=== PATIENT | male | born 1945 | race Caucasian/White ===

== ENCOUNTER 2019-08-24 20:59 | Observation (INO) | payer MEDICARE, SELFPAY ==
[2019-08-24 21:05] VITALS: BP 165/83; PULSE 98; RESP 22; TEMP 36.2; O2SAT 98
[2019-08-24 21:12] LABS: Glucose Point of Care 76 (65-105)
--- NOTE | 2019-08-24 21:39 | ED.RECABL ---
HPI - Recheck/Abnormal Lab/Rx General Chief Complaint: Recheck/Abnormal Lab/Rx Stated Complaint: low BS Time Seen by Provider: 08/24/19 21:36 Source: patient and RN notes reviewed Mode of arrival: ambulatory Limitations: no limitations History of Present Illness HPI narrative: Pt is a 74 y/o male with a Hx of DM, who presents to the ED with c/o hypoglycemia starting this evening. He notes that he normally only takes Metformin 500 mg for his DM. Pt states that he was at a family function this evening when he accidentally took an extra dosage of Metformin 1,000 mg and 2 Glipizide around 18:00. His notes that he also took Xarelto, Plavix, and ASA. Pt notes that his BS eventually dropped down to 70 after eating ice cream at home. He currently denies any symptoms. MD complaint: abnormal lab Returns today for: other (abnormal BS reading at home) Description of abnormal result: Blood glucose of 70. Symptoms since prior visit: no new symptoms Associated symptoms: none Related Data Home Medications Medication Instructions Recorded Confirmed aspirin 81 mg tablet,delayed 81 mg PO DAILY 07/26/19 release atorvastatin 40 mg tablet 40 mg PO DAILY 07/26/19 ferrous sulfate 142 mg (45 mg 2 mg PO DAILY tablet 07/26/19 iron) tablet,extended release furosemide 20 mg tablet 20 mg PO QAM 07/26/19 metformin 500 mg tablet 500 mg PO BID 07/26/19 multivitamin 1 tablet PO DAILY 07/26/19 pantoprazole 40 mg tablet,delayed 40 mg PO QAM 07/26/19 release niacin 500 mg capsule,extended 500 mg PO QAM 07/28/19 07/28/19 release Allergies Allergy/AdvReac Type Severity Reaction Status Date / Time lisinopril AdvReac Mild Cough Verified 03/06/19 10:58 Review of Systems Review of Systems: Narrative: CONSTITUTIONAL: Denies fever, chills, or sweats. CARDIOVASCULAR: Denies chest pain, palpitations, or edema. RESPIRATORY: Denies cough or dyspnea. GASTROINTESTINAL: Denies abdominal pain, nausea, vomiting, or diarrhea. GENITOURINARY: Denies dysuria or hematuria. All systems reviewed & are unremarkable except as noted in HPI and below PMFSH Past Medical History Medical History A-fib Arthritis Diabetes mellitus HLD (hyperlipidemia) Mitral valve prolapse Prostate cancer Sleep apnea Surgical History Surgical History Hx of appendectomy Hx of cardiac catheterization Hx of cholecystectomy Hx of prostatectomy Hx of vasectomy Social History Social History Smoking status: Never smoker Gender identity (if verbalized by the patient): Male Exam Narrative: Exam Narrative: GENERAL: Well-appearing, well-nourished, and in no acute distress. HEAD: Normocephalic, atraumatic. EYES: PERRLA and EOMI. ENT: Nares clear, no rhinorrhea or epistaxis. Mucous membranes moist. NECK: Supple. CHEST: Clear to auscultation. No respiratory distress. HEART: Regular rate and rhythm. Grade 3 systolic murmur heard. Normal peripheral pulses. ABDOMEN: Soft, nontender, nondistended, normal active bowel sounds. EXTREMITIES: Normal range of motion. No edema. SKIN: Warm, dry, no rash. NEURO: No focal deficits. Alert and oriented. Course Vital Signs Vital signs: Vital Signs Temperature 36.2 C L 08/24/19 21:05 Pulse Rate 98 08/24/19 21:05 Respiratory Rate 22 H 08/24/19 21:05 Blood Pressure 165/83 H 08/24/19 21:05 Pulse Oximetry 98 08/24/19 21:05 Temperature 36.2 C L 08/24/19 21:05 Pulse Rate 73 08/24/19 22:20 Respiratory Rate 20 08/24/19 22:20 Blood Pressure 159/80 H 08/24/19 22:20 Pulse Oximetry 98 08/24/19 22:20 MDM - Recheck/Abnormal Lab/Rx MDM Narrative Medical decision making narrative: Patient presented for evaluation of accidental glipizide ingestion when he confused his brothers medications with his own. Patient has been taking his glucose measurements at home, he has fluct
[2019-08-24 22:18] LABS: Blood Urea Nitrogen 25 mg/dL (9-20); Calcium 9.5 mg/dL (8.4-10.2); Carbon Dioxide 23 mmol/L (22-30); Chloride 100 mmol/L (98-107); Estimated CRCL calculation 56 ml/min; Estimated Glomerular Filt Rate 54; Glucose 105 mg/dL (75-110); Potassium 3.4 mmol/L (3.4-5.0); Sodium 139 mmol/L (137-145)
[2019-08-24 22:20] VITALS: BP 129/80; BP 159/80; PULSE 73; RESP 20; O2SAT 97; O2SAT 98
[2019-08-24 22:50] LABS: Glucose Point of Care 83 (65-105)
[2019-08-24 23:20] LABS: Glucose 104 mg/dL (75-110)
[2019-08-25] VITALS (9 sets, daily range): BP systolic 139–150; BP diastolic 82–99; PULSE 63–76; RESP 18–22; TEMP 36.4–36.6; O2SAT 94–97; BMI 33.5
[2019-08-25 00:36] LABS: Glucose Point of Care 125 (65-105)
--- NOTE | 2019-08-25 01:14 | ADMGEN ---
This patient, Danish Lu, was admitted to IMU Room 213-01 at 0045. Patient/family oriented to hospital policies and general routines including ID bracelet, bed and alarms, visiting hours, pain management, procedures, bathroom and other care routines, personal items, smoking policy, room service/diet, and visiting hours. Valuables list has been completed. Information on how to activate the Rapid Response Team has been discussed. Patient/Family are encouraged to report perceived risks to care and to ask questions if they do not understand what they are told or what they should do.
[2019-08-25 01:20] LABS: Glucose Point of Care 121 (65-105)
[2019-08-25 02:37] LABS: Glucose Point of Care 88 (65-105)
[2019-08-25 05:45] LABS: Glucose Point of Care 97 (65-105)
[2019-08-25 05:45] LABS: Glucose Point of Care 99 (65-105)
[2019-08-25 08:39] LABS: Glucose Point of Care 160 (65-105)
--- NOTE | 2019-08-25 09:39 | PM.IMHP ---
H&P: HPI History of Present Illness Chief complaint: accidental ingestion hypoglycemia Narrative: Date and Time of Service of History & Physical: August 25, 2019 at 9:25 a.m.. Date and Time of Placement in Observation Order: August 24, 2019 at 11:51 p.m.. Chief Complaint: Accidental ingestion family member's medication including hypoglycemia. History of Present Illness: Danish Lu is a 74 year old male with type 2 diabetes mellitus, atrial fibrillation, hypertension, hyperlipidemia, chronic kidney disease stage 3, chronic systolic congestive heart failure and obstructive sleep apnea who presented to the emergency room after accidental ingestion of his cbuzenu-cp-uqh's medication. Patient reports he and his were at a family event celebrating his qlogpe-xj-plg's 89th birthday. Patient and his avwwdje-ue-ifd both put there medications in generic black empty test strip containers. Patient reports at approximately 5:30 a.m. to 6:00 p.m. he accidentally took his nqiwbiq-rn-okr's medications. This included 2 tablets of 10 mg glipizide, Plavix 75 mg, Xarelto 2.5 mg, aspirin 81 mg and metformin 1000 mg. Patient is regularly on metformin 500 mg b.i.d. herself. Accidental ingestion was immediately identified. Patient immediately began eating higher sugar content foods eating 2 Snickers ice cream bars at home. He also began checking his blood sugar level. Lowest glucose level recorded at home was 70 at which time felt he should come in for further evaluation. Glucose was 76 on presentation to the emergency room after patient received 3 glasses of orange juice on presentation. Patient notes he was never symptomatic. He denies visual changes. No diaphoresis, lightheadedness, chest pain, shortness ER with, nausea or vomiting. With his presentation and the volume of particularly sulfonylurea that was ingested, it was felt current place in an observation for why to ensure that no hypoglycemia. He is completely asymptomatic at this time. He would like to go home. Review of Systems Review of Systems: All systems reviewed & are unremarkable except as noted in HPI and below Constitutional: Constitutional: Denies chills and Denies fever(s) Eyes: Eyes: Denies blurry vision and Denies diplopia ENT: Denies epistaxis, Denies nasal congestion and Denies nasal discharge Cardiovascular: Cardiovascular: Denies chest pain, Denies leg edema, Denies lightheadedness and Denies palpitations Respiratory: Respiratory: Denies cough and Denies dyspnea Gastrointestinal: Gastrointestinal: Denies abdominal pain, Denies nausea and Denies vomiting Genitourinary: Genitourinary: Denies hematuria and Denies dysuria Musculoskeletal: Musculoskeletal: Reports no additional musculoskeletal complaints Integumentary/Breasts: Skin/Breast: Denies rash Neurologic: Denies vertigo, Denies headache(s) and Denies numbness Psychiatric: Psychiatric: Denies anxiety, Denies confusion and Denies depression Endocrine: Endocrine: Reports no additional endocrine complaints Hematologic/Lymphatic: Hematologic/Lymphatic: Reports no additional hematologic/lymphatic complaints Allergic/Immunologic: Allergic/Immunologic: Reports no additional allergic/immunologic complaints [facility] Past Medical History Medical History A-fib Aortic stenosis Arthritis Chronic kidney disease, stage 3 Chronic systolic heart failure Diabetes mellitus HLD (hyperlipidemia) Mitral valve prolapse Prostate cancer Sleep apnea Surgical History Surgical History Hx of appendectomy Hx of cardiac catheterization Hx of cholecystectomy Hx of prostatectomy Hx of vasectomy Family History Family History Father Lung cancer Diabetes mellitus Mother Cancer Social History Social History (Reviewed 08/25/19 @ 09:46 by Sally
--- NOTE | 2019-08-25 10:02 | PM.DS ---
DS: Diagnosis Discharge Diagnosis (1) Accidental drug ingestion: Qualifiers: Encounter type: initial encounter Qualified Code(s): T50.901A - Poisoning by unspecified drugs, medicaments and biological substances, accidental (unintentional), initial encounter Code(s): T50.901A - Poisoning by unspecified drugs, medicaments and biological substances, accidental (unintentional), initial encounter Status: Acute (2) Diabetes mellitus: Qualifiers: Chronic kidney disease stage: stage 3 (moderate) Diabetes mellitus complication detail: with chronic kidney disease Diabetes mellitus complication status: with kidney complications Diabetes mellitus extermination inspector insulin use: without extermination inspector use Diabetes mellitus type: type 2 Qualified Code(s): E11.22 - Type 2 diabetes mellitus with diabetic chronic kidney disease; N18.3 - Chronic kidney disease, stage 3 (moderate) Code(s): E11.9 - Type 2 diabetes mellitus without complications Status: Acute (3) Chronic kidney disease, stage 3: Code(s): N18.3 - Chronic kidney disease, stage 3 (moderate) Status: Acute (4) A-fib: Qualifiers: Atrial fibrillation type: unspecified Qualified Code(s): I48.91 - Unspecified atrial fibrillation Code(s): I48.91 - Unspecified atrial fibrillation Status: Acute (5) Chronic systolic heart failure: Code(s): I50.22 - Chronic systolic (congestive) heart failure Status: Chronic (6) Sleep apnea: Qualifiers: Sleep apnea type: obstructive Qualified Code(s): G47.33 - Obstructive sleep apnea (adult) (pediatric) Code(s): G47.30 - Sleep apnea, unspecified Status: Acute DS: Summary Hospital Course Reason for hospitalization: Accidental ingestion of hqgfpav-cm-xmp's medication. Hospital Course: Date of Service of Discharge: August 25, 2019. History of Present Illness: patient is a 74-year-old gentleman with type 2 diabetes mellitus, atrial fibrillation, hypertension, hyperlipidemia, chronic kidney disease stage 3, chronic systolic congestive heart failure and obstructive sleep apnea present emergency room after accidental ingestion of his vokrrhh-si-aqx's medication. Patient reports he and his were at a family event celebrating his qppxhn-ld-qqe's 89th birthday. Both he and his kmripvl-po-lbi had put there medications in generic black empty test strip containers. Patient reports at approximately 5:30 p.m. to 6:00 p.m. he accidentally took his jyiyklu-fl-poj's medication. This included 2 tablets of 10 mg glipizide, Plavix 75 mg, Xarelto 2.5 mg aspirin 81 mg and metformin 1000 mg. Patient is normally on 500 mg himself at home. The accidental ingestion was noted immediately. He then began checking his blood sugar and did eat 2 Snickers ice cream bars. Glucose did drop to 70 at home. At this point, his felt it was prudent for him to come in for evaluation. On presentation to the emergency room, he was given 2 glasses of orange juice. Glucose after the 2 glasses was 76. Patient reports no physical symptoms including no visual changes, no diaphoresis, no chest pain, no shortness of breath and no dizziness. Given the long half-life of glipizide, he was placed in observation for further evaluation and treatment. Course in Hospital: Patient was placed in observation in the IMU. Glucose levels were monitored with lowest level 76 in the emergency room. Home diabetic medications were held. Patient was allowed to eat regularly. By the morning of 08/25/2019, glucose was 160. Patient remained asymptomatic. He did not require any IV or other form of dextrose during his stay. Blood pressure was monitored and remained stable throughout his stay. No respiratory difficulties. No exacerbation of congestive heart failure. With the patient stabilized and no further concern for hypoglycemia at this point, he was discharged home on August 25, 2019. Status at [facility]
== END 2019-08-25 10:17 | disposition home or self-care (01) ==
LOC: ANHED 08-25 00:08 → ANHIMU 08-25 09:52
PROVIDERS: Admitting Provider Internal Medicine; Emergency Provider Emergency Medicine; PCP Internal Medicine; Visit Provider Hospitalist
DX: T38.3X1A Poisoning by insulin and oral hypoglycemic [antidiabetic] drugs, accidental (unintentional), initial encounter (principal); T45.511A Poisoning by anticoagulants, accidental (unintentional), initial encounter; T45.521A Poisoning by antithrombotic drugs, accidental (unintentional), initial encounter; E11.649 Type 2 diabetes mellitus with hypoglycemia without coma; Z79.84 Long term (current) use of oral hypoglycemic drugs; E11.22 Type 2 diabetes mellitus with diabetic chronic kidney disease; I13.0 Hypertensive heart and chronic kidney disease with heart failure and stage 1 through stage 4 chronic kidney disease, or unspecified chronic kidney disease; N18.3 Chronic kidney disease, stage 3 (moderate); I50.22 Chronic systolic (congestive) heart failure; I48.91 Unspecified atrial fibrillation; I08.0 Rheumatic disorders of both mitral and aortic valves; E78.5 Hyperlipidemia, unspecified; G47.33 Obstructive sleep apnea (adult) (pediatric); Z79.82 Long term (current) use of aspirin; Z79.899 Other long term (current) drug therapy; Z85.46 Personal history of malignant neoplasm of prostate
CPT/HCPCS: 36415; 80048; 82947; 82948; 99285; G0378

== ENCOUNTER 2019-11-24 09:55 | Outpatient (CLI) | payer MEDICARE, SELFPAY ==
[2019-11-24 11:09] LABS: Alanine Aminotransferase 20 U/L (4-50); Albumin Level 4.5 g/dL (3.5-5.1); Alkaline Phosphatase 90 U/L (38-126); Aspartate Amino Transferase 27 U/L (17-59); Bilirubin,Total 0.9 mg/dL (0.2-1.3); Blood Urea Nitrogen 24 mg/dL (9-20); Calcium 9.3 mg/dL (8.4-10.2); Carbon Dioxide 26 mmol/L (22-30); Chloride 100 mmol/L (98-107); Cholesterol 155 mg/dL (0-200); Estimated Glomerular Filt Rate 50; Glucose 181 mg/dL (75-110); HDL Direct 30 mg/dL; Potassium 4.3 mmol/L (3.4-5.0); Sodium 135 mmol/L (137-145); Triglycerides 133 mg/dL (<150)
[2019-11-24 11:20] LABS: LDL Cholesterol Direct 95 mg/dL
[2019-11-24 11:31] LABS: Hemoglobin A1C 7.4 % (<5.7)
== END 2019-11-24 09:56 | disposition home or self-care (01) ==
PROVIDERS: PCP Internal Medicine; Visit Provider Nurse Practitioner
DX: R77.9 Abnormality of plasma protein, unspecified (principal); E11.9 Type 2 diabetes mellitus without complications; E78.5 Hyperlipidemia, unspecified
CPT/HCPCS: 36415; 80053; 80061; 83036

== ENCOUNTER 2020-03-14 10:23 | Outpatient (CLI) | payer MEDICARE, SELFPAY ==
[2020-03-14 10:55] LABS: Alanine Aminotransferase 23 U/L (4-50); Albumin Level 4.6 g/dL (3.5-5.1); Alkaline Phosphatase 84 U/L (38-126); Anion Gap 9 mmol/L (8-16); Aspartate Amino Transferase 26 U/L (17-59); Bilirubin,Total 0.8 mg/dL (0.2-1.3); Blood Urea Nitrogen 25 mg/dL (9-20); Calcium 9.6 mg/dL (8.4-10.2); Carbon Dioxide 28 mmol/L (22-30); Chloride 100 mmol/L (98-107); Cholesterol 175 mg/dL (0-200); Estimated Glomerular Filt Rate 59; Glucose 184 mg/dL (75-110); HDL Direct 31 mg/dL; Hemoglobin A1C 6.9 % (<5.7); Sodium 137 mmol/L (137-145); Triglycerides 192 mg/dL (<150)
[2020-03-14 11:06] LABS: LDL Cholesterol Direct 103 mg/dL
[2020-03-14 11:24] LABS: Prostate Specific Antigen 1.7 ng/mL (< OR = 4.0)
== END 2020-03-14 10:24 | disposition home or self-care (01) ==
PROVIDERS: PCP Internal Medicine; Visit Provider Internal Medicine
DX: E11.9 Type 2 diabetes mellitus without complications (principal); Z79.899 Other long term (current) drug therapy; E78.5 Hyperlipidemia, unspecified; Z12.5 Encounter for screening for malignant neoplasm of prostate
CPT/HCPCS: 36415; 80053; 80061; 83036; 84153; G0103

== ENCOUNTER 2020-03-22 14:00 | Outpatient (CLI) | payer MEDICARE, SELFPAY ==
[2020-03-22 14:59] LABS: Prostate Specific Antigen 1.7 ng/mL (< OR = 4.0)
== END 2020-03-22 14:01 | disposition home or self-care (01) ==
PROVIDERS: PCP Internal Medicine; Visit Provider Internal Medicine
DX: C61 Malignant neoplasm of prostate (principal); E11.9 Type 2 diabetes mellitus without complications; I10 Essential (primary) hypertension
CPT/HCPCS: 36415; 84153

== ENCOUNTER 2020-03-25 07:53 | Outpatient (CLI) | payer MEDICARE, SELFPAY ==
--- NOTE | ~2020-03-25 | CT_ITS ---
EXAMINATION: CT chest wo con DATE: 03/25/2020 08:35 INDICATION: Follow-up abnormal chest findings on prior CT. Interstitial lung disease. TECHNIQUE: Computed tomography (CT) of the chest was performed without intravenous contrast. The dose -length product was 640.06 mGy-cm. Automated exposure control and iterative reconstruction technique were employed. COMPARISON: CT dated 06/12/2019 and 03/20/2019 FINDINGS: There is chronic elevation of the right diaphragm. There are persistent extensive reticular opacities which are preferentially peripheral. There are scattered areas of groundglass opacities. N o significant pleural or pericardial effusion. There is left atrial enlargement. There is coronary an d aortic atherosclerosis. There are borderline sized mediastinal lymph nodes unchanged, likely reacti ve. Exophytic left renal cyst unchanged. There are cholecystectomy changes. There are a few scattered calcified granulomas. IMPRESSION: 1. Stable diffuse lung disease. Differential diagnosis includes nonspecific interstitial pneumonia, u sual interstitial pneumonia and chronic hypersensitivity pneumonitis. Reviewed, dictated and finalized at location B. IMPRESSION: 1. Stable diffuse lung disease. Differential diagnosis includes nonspecific int erstitial pneumonia, usual interstitial pneumonia and chronic hypersensitivity pneumonitis.
== END 2020-03-25 07:54 | disposition home or self-care (01) ==
PROVIDERS: PCP Internal Medicine; Visit Provider Internal Medicine
DX: R91.8 Other nonspecific abnormal finding of lung field (principal); E11.9 Type 2 diabetes mellitus without complications; I10 Essential (primary) hypertension
CPT/HCPCS: 71250

== ENCOUNTER 2020-04-20 10:44 | Outpatient (CLI) | payer MEDICARE, SELFPAY ==
[2020-04-25 09:45] LABS: ANA Cascade Screen Negative (Negative)
== END 2020-04-20 10:45 | disposition home or self-care (01) ==
PROVIDERS: PCP Internal Medicine; Visit Provider Internal Medicine Critical Care Medicine
DX: J84.9 Interstitial pulmonary disease, unspecified (principal)
CPT/HCPCS: 36415; 86038; 86331; 86606; 86609

== ENCOUNTER 2020-05-22 09:04 | Outpatient (CLI) | payer MEDICARE, SELFPAY ==
--- NOTE | 2020-05-26 11:54 | WPDPFTINT ---
PFT Interpretation PFT Interpretation: This PFT met all criteria for ATS standards and reproducibility FEV/FVC post bronchodilator 82% FEV1 113% FVC 90% TLC 96% RV 86% RV/TLC 36% DLCO 77% when adjusted for alveolar volume but not adjusted for hemoglobin Flow volume loops were normal Impression: No significant obstruction or restriction is present. Mildly reduced diffusion capacity. As compared to one year ago the air flow obstruction has resolved and the diffusion capacity has greatly increased. Clinical correlation is advised.
== END 2020-05-22 09:05 | disposition home or self-care (01) ==
PROVIDERS: PCP Internal Medicine; Visit Provider Internal Medicine Critical Care Medicine
DX: J84.9 Interstitial pulmonary disease, unspecified (principal)
CPT/HCPCS: 94060; 94726; 94729

== ENCOUNTER 2020-09-16 07:02 | Outpatient (CLI) | payer MEDICARE, SELFPAY ==
[2020-09-16 07:42] LABS: Hematocrit 44.3 % (42.0-52.0); Hemoglobin 15.7 g/dL (14.0-18.0)
[2020-09-16 07:51] LABS: Hemoglobin A1C 7.6 % (<5.7)
[2020-09-16 07:57] LABS: Alanine Aminotransferase 19 U/L (4-50); Albumin Level 4.4 g/dL (3.5-5.1); Alkaline Phosphatase 85 U/L (38-126); Anion Gap 8 mmol/L (8-16); Aspartate Amino Transferase 25 U/L (17-59); Bilirubin,Total 0.7 mg/dL (0.2-1.3); Blood Urea Nitrogen 32 mg/dL (9-20); Calcium 9.7 mg/dL (8.4-10.2); Carbon Dioxide 30 mmol/L (22-30); Chloride 101 mmol/L (98-107); Cholesterol 159 mg/dL (0-200); Estimated Glomerular Filt Rate 54; Glucose 169 mg/dL (75-110); HDL Direct 30 mg/dL; Potassium 4.3 mmol/L (3.4-5.0); Sodium 139 mmol/L (137-145); Triglycerides 238 mg/dL (<150)
[2020-09-16 08:08] LABS: LDL Cholesterol Direct 87 mg/dL
[2020-09-16 08:36] LABS: Iron 96 ug/dL (49-181)
[2020-09-16 08:37] LABS: Creatinine Urine 151.5 mg/dL
[2020-09-16 08:42] LABS: Microalbumin Urine Random 133.3 mg/L (0-16.7)
[2020-09-16 08:46] LABS: Percent Iron Saturation 29 % (20-50)
== END 2020-09-16 07:03 | disposition home or self-care (01) ==
PROVIDERS: PCP Internal Medicine; Visit Provider Internal Medicine
DX: E11.9 Type 2 diabetes mellitus without complications (principal); I10 Essential (primary) hypertension; D64.9 Anemia, unspecified; D50.9 Iron deficiency anemia, unspecified; E78.5 Hyperlipidemia, unspecified
CPT/HCPCS: 36415; 80053; 80061; 82043; 83036; 83540; 83550; 85014; 85018

== ENCOUNTER 2021-01-22 10:57 | Outpatient (CLI) | payer MEDICARE, SELFPAY ==
[2021-01-22 12:04] LABS: Anion Gap 10 mmol/L (8-16); Blood Urea Nitrogen 26 mg/dL (9-20); Calcium 10.3 mg/dL (8.4-10.2); Carbon Dioxide 30 mmol/L (22-30); Chloride 96 mmol/L (98-107); Estimated Glomerular Filt Rate 54; Glucose 192 mg/dL (75-110); Magnesium 1.9 mg/dL (1.6-2.3); Potassium 4.4 mmol/L (3.4-5.0); Sodium 136 mmol/L (137-145)
== END 2021-01-22 10:58 | disposition home or self-care (01) ==
PROVIDERS: PCP Internal Medicine; Visit Provider Internal Medicine
DX: R00.2 Palpitations (principal)
CPT/HCPCS: 36415; 80048; 83735; 84443

== ENCOUNTER 2021-01-29 08:39 | Outpatient (CLI) | payer MEDICARE, SELFPAY ==
--- NOTE | 2021-01-31 16:17 | WPDHOLTEREM ---
Holter/Event Monitor Holter/Event Monitor Date of procedure: 01/31/21 Holter/Event Procedure: 24 Hr Holter Monitor Diagnosis: palpitations Indications: palpitations Image/Tracing Quality: favorable Finding: the basic rhythm is atrial fibrillation with rapid ventricular response. The heart rate varies from a minimum of 75 to a maximum of 185. The average heart rate was 123. There were no significant pauses noted the patient did not have any evidence of sinus activity during this exam. QRS duration and QT intervals are normal. Supraventricular ectopic activity other than atrial fibrillation was not seen. Ventricular ectopic activity consisted of occasional PVCs throughout the day. Some of the wider QRS complex is labeled as ventricular appear to be more consistent with a barely conducted atrial fibrillation. Having said that there were are are occasional PVCs there was 1 ventricular triplet noted there were also several ventricular couplets. There were no ventricular runs longer than 3 beats. The patient submitted a diary which indicates there were no symptoms. Conclusion: 1. Atrial fibrillation with rapid ventricular response 2. occasional ventricular ectopic activity including some couplets and triplets 3. no symptoms Bernard Damon MD [facility]
== END 2021-01-29 08:40 | disposition home or self-care (01) ==
LOC: ANHCARD 08:42
PROVIDERS: PCP Internal Medicine; Visit Provider Internal Medicine
DX: R00.2 Palpitations (principal)
CPT/HCPCS: 93225; 93226

== ENCOUNTER 2021-02-15 07:18 | Inpatient (IN) | payer MEDICARE, SELFPAY ==
[2021-02-15] VITALS (24 sets, daily range): BP systolic 98–136; BP diastolic 64–111; PULSE 54–159; RESP 18–30; TEMP 36.3–36.7; O2SAT 94–98; BMI 35.6; BMI 35.9
--- NOTE | ~2021-02-15 | XR_ITS ---
EXAMINATION: XR chest ET placement, XR abdomen NG/feed tube insert DATE: 02/18/2021 21:48 INDICATION: Tracheal tube placement. Nasogastric tube placement. TECHNIQUE: 1. Frontal view of the chest was obtained. 2. Frontal view of the abdomen was obtained. COMPARISON: Chest radiograph dated 02/18/2021 FINDINGS: Chest: Endotracheal tube tip 4.2 cm above the hans. No evident nasogastric tube at the chest are visualize d lower neck. Elevation of the right hemidiaphragm. Gradient of basilar predominant opacities in the bilateral low er lung zones consistent with small bilateral posteriorly layering pleural effusions. Additional patc hy airspace opacities scattered throughout both lungs which could represent atelectasis, pneumonia or pulmonary edema. No pneumothorax. Heart size within normal limits for AP technique. Enlargement of t he central pulmonary arteries consistent with pulmonary arterial hypertension. ABDOMEN: No nasogastric tube. Small amount of gas in the upper abdomen with configuration suggesting the trans verse and splenic flexure of the colon. No other dilated gas-filled loops of bowel in the visualized abdomen which excludes portions of the right abdomen as well as the pelvis. Severe lower lumbar spond ylosis. IMPRESSION: 1. Endotracheal tube in acceptable position 4.2 cm above the hans. Nasogastric tube is not visualiz ed suggesting it is coiled in the oropharynx. 2. Opacities in bilateral lungs consistent with atelectasis, pulmonary edema and/or pneumonia superim posed over small bilateral posterior layering pleural effusions. Reviewed, dictated and finalized at location A. IMPRESSION: 1. Endotracheal tube in acceptable position 4.2 cm above the hans. Nasogastri c tube is not visualized suggesting it is coiled in the oropharynx. 2. Opacities in bilateral lungs consistent with atelectasis, pulmonary edema an d/or pneumonia superimposed over small bilateral posterior layering pleural eff usions.
--- NOTE | ~2021-02-15 | XR_ITS ---
XR chest 1V portable 02/15/2021 07:54 Indication: Shortness of breath Procedure: AP portable chest Comparison: Comparison to multiple prior studies sequentially, with oldest reviewed study dated 11/22. Findings: Cardiomegaly. Chronic bilateral airspace disease. No significant effusion or pneumothorax. No acute osseous abnormality. Impression: 1: Diffuse bilateral airspace disease which appears chronic. Differential diagnosis includes edema an d pneumonia. Reviewed, dictated and finalized at location A. Impression: 1: Diffuse bilateral airspace disease which appears chronic. Differential diagn osis includes edema and pneumonia.
--- NOTE | ~2021-02-15 | XR_ITS ---
EXAMINATION: XR abdomen NG/feed tube insert DATE: 02/18/2021 22:01 INDICATION: Nasogastric tube placement TECHNIQUE: A supine view of the abdomen and lower chest was obtained for evaluation of feeding tube placement. COMPARISON: 02/18/2021 at 9:25 PM FINDINGS: Nasogastric tube with distal tip in the body of the stomach and proximal side port near the level of the gastroesophageal junction. Small amount of gas in the stomach as well as the transverse colon. No other dilated loops of gas-filled bowel in the visualized abdomen with portions of the right abdomen as well as the pelvis excluded from the [id number]. IMPRESSION: 1. Nasogastric tube tip in the body of the stomach. Consider advancement by an additional 5 cm to yohan ce the proximal side-port below level of the gastroesophageal junction. Reviewed, dictated and finalized at location A. IMPRESSION: 1. Nasogastric tube tip in the body of the stomach. Consider advancement by an additional [address] the proximal side-port below level of the gastroesopha geal junction.
--- NOTE | ~2021-02-15 | XR_ITS ---
XR chest 1V portable DATE: 02/19/2021 05:06 INDICATION: Pulmonary edema TECHNIQUE: Portable AP chest on the size of 05/2021 0458 hours COMPARISON: 02/18/2021 portable AP chest at 2125 hours FINDINGS: There are extensive diffuse bilateral pulmonary infiltrates, increased since 02/18/2021, con sistent with pulmonary edema and/or extensive pneumonia. Prominence of the minor fissure suggesting s ubpleural edema. Cardiomegaly. ET tube in satisfactory position. NG tube is seen passing toward the stomach at the lower most aspect of the image. Bilateral glenohumeral osteoarthritis. IMPRESSION: Severe bilateral pulmonary infiltrates, increased since 02/18/2021, consistent with pulmon soheila edema and/or pneumonia Reviewed, dictated and finalized at location A. IMPRESSION: Severe bilateral pulmonary infiltrates, increased since 02/18/2021, consistent with pulmonary edema and/or pneumonia
--- NOTE | ~2021-02-15 | XR_ITS ---
XR chest 1V portable DATE: 02/18/2021 07:40 INDICATION: Respiratory distress TECHNIQUE: Portable AP views on 02/18/2021 at 0 731 0732 hours COMPARISON: 02/15/2021 portable AP chest FINDINGS: There is interval increased elevation of the right leaf of the diaphragm. There are extensive patchy bilateral pulmonary infiltrates, more prominent centrally, which may be du e to pulmonary edema; pneumonia is not excluded. Heart size is not optimally evaluated on AP projection because of magnification. Pulmonary vascular c ongestion. Prominence of the minor fissure suggests subpleural edema and Kinsey B-lines are noted, co nsistent with pulmonary interstitial edema. Small pleural effusions are suggested. No pneumothorax. Diffuse osteopenia. Prominent osteoarthritic change at the included left glenohumeral joint. IMPRESSION: Extensive bilateral pulmonary infiltrates, more prominent centrally, with Kinsey B-lines indicating pulmonary interstitial edema and prominence of minor fissure consistent with subpleural ed florecita. Findings suggest congestive heart failure, pulmonary edema Pneumonia is not excluded Interval increased elevation of the right leaf of the diaphragm Reviewed, dictated and finalized at location A. IMPRESSION: Extensive bilateral pulmonary infiltrates, more prominent centrally , with Kinsey B-lines indicating pulmonary interstitial edema and prominence of minor fissure consistent with subpleural edema. Findings suggest congestive he art failure, pulmonary edema Pneumonia is not excluded Interval increased elevation of the right leaf of the diaphragm
--- NOTE | 2021-02-15 07:32 | ECG_ITS ---
Measurements Intervals [place] Rate: 162 P: FL: 0 QRS: -9 QRSD: 97 T: 139 QT: 267 QTc: 439 Interpretive Statements ATRIAL FIBRILLATION WITH RAPID VENTRICULAR RESPONSE VENTRICULAR PREMATURE COMPLEXES DELAYED PRECORDIAL R/S TRANSITION BASELINE ARTIFACT- I, II, III, AVR, AVL, AVF, V1-V6 ABNORMAL ECG Electronically Signed On 02-15-2021 21:23:20 CDT by Tommy Escalante D.O.
[2021-02-15] MEDS: dilTIAZem HCl INJ 25 MG/5 ML VIAL 10 MG IV PUSH (07:41)
[2021-02-15 08:05] LABS: Basophils Percent Auto 0.3 % (0.2-1.2); Eosinophils Absolute Auto 0.1 K/mm3 (0-0.3); Eosinophils Percent Auto 0.7 % (0-4.4); Hematocrit 42.1 % (42.0-52.0); Hemoglobin 13.9 g/dL (14.0-18.0); Immature Granulocyte Absolute 0.03 K/mm3 (0.00-0.031); Immature Granulocyte Percent A 0.3 % (0-0.5); Lymphocytes Absolute Auto 1.31 K/mm3 (0.9-3.2); Lymphocytes Percent Auto 13.8 % (18.3-44.2); Mean Corpuscular Hemoglobin 31.1 pg (26-34); Mean Corpuscular Volume 94.2 fl (80-100); Mean Platelet Volume 10.2 fl (7.4-10.4); Monocytes Absolute Auto 0.8 K/mm3 (0.1-0.6); Monocytes Percent Auto 8.1 % (2.6-8.5); Neutrophils Absolute Auto 7.3 K/mm3 (1.3-6.7); Neutrophils Percent Auto 76.8 % (45.5-73.1); Platelet Count Result 215 k/mm3 (150-375); Red Blood Count 4.47 M/mm3 (4.6-6.20); Red Cell Distribution Width 14.1 % (11.5-14.5); White Blood Count 9.5 K/mm3 (4.5-10.0)
--- NOTE | 2021-02-15 08:07 | ED.SOB ---
HPI - SOB/Dyspnea General Chief Complaint: Shortness of Breath/Dyspnea Stated Complaint: sob Time Seen by Provider: 02/15/21 07:25 History of Present Illness HPI Narrative: Patient is a 75-year-old male who presents ER with shortness of breath. Ongoing for over a week. Has had a Holter monitor that showed he was in atrial fibrillation. He was last in atrial fibrillation 3 years ago. At that time he received cardioversion and anticoagulation he then became again anemic requiring repeat blood transfusion and so he had to stop his blood thinner. Today he has no chest pain or chest pressure. He is short of breath when he exerts himself. He is having no lightheadedness focal weakness. He no longer takes amiodarone for his heart rate. He does take Lasix. Related Data Home Medications Medication Instructions Recorded Confirmed aspirin 81 mg tablet,delayed 81 mg PO DAILY 07/26/19 02/15/21 release multivitamin 1 tablet PO DAILY 07/26/19 02/15/21 niacin 500 mg capsule,extended 500 mg PO QPM 07/28/19 02/15/21 release Calcium 500 500 mg PO DAILY 08/25/19 02/15/21 Calcium 600-D3 Plus (mag-zinc) 1 tablet PO BID 08/25/19 02/15/21 ebpuglc-nxwwdbkai-ljzv 333 mg-133 333 tablet PO DAILY 09/26/19 02/15/21 mg-5 mg tablet furosemide 20 mg tablet 20 mg PO QAM 09/26/19 02/15/21 Allergies Allergy/AdvReac Type Severity Reaction Status Date / Time lisinopril AdvReac Mild Cough Verified 02/15/21 07:35 Review of Systems Review of Systems: All systems reviewed & are unremarkable except as noted in HPI and below Constitutional: Constitutional: Denies chills, Denies fever(s) and Denies weakness ENT: Reports nasal congestion and Denies sore throat Cardiovascular: Cardiovascular: Denies chest pain, Reports rapid heart rate and Denies radiating jaw, neck or arm pain Respiratory: Respiratory: Reports cough, Reports dyspnea and Denies wheezing Gastrointestinal: Gastrointestinal: Denies abdominal pain, Denies diarrhea, Denies nausea and Denies vomiting [facility] Past Medical History Medical History (Updated 02/15/21 @ 19:01 by Robbie Pugh MD) A-fib Aortic stenosis Arthritis Chronic kidney disease, stage 3 Chronic systolic heart failure Diabetes mellitus HLD (hyperlipidemia) Mitral valve prolapse Prostate cancer Shortness of Breath Sleep apnea Surgical History Surgical History (Updated 02/15/21 @ 13:43 by Sandy Moran PA-C) Hx of appendectomy Hx of cholecystectomy Hx of prostatectomy Hx of vasectomy Family History Family History Father Lung cancer Diabetes mellitus Mother Cancer Father Family history of diabetes mellitus in first degree relative Family history of malignant melanoma Patient's father is Grandparent Diabetes mellitus Mother Patient's mother is Social History Social History (Updated 01/15/21 @ 07:42 by Isabel Golden MA) Social History: Patient lives with his . He is a full code. Occasional beer consumption. No smoking. Smoking status: Never smoker Second hand tobacco smoke exposure: No Alcohol intake: current Drinks per week: 1 Substance use: never Gender identity (if verbalized by the patient): Male Spiritual care concerns: No Agree to blood products: Yes Exam Narrative: GENERAL: Well-appearing, well-nourished, and in no acute distress. HEAD: Normocephalic, atraumatic. CHEST: Clear to auscultation. No respiratory distress. HEART: Irregularly irregular rate and rhythm that is tachycardic. Normal peripheral pulses. ABDOMEN: Soft, nontender, nondistended. EXTREMITIES: Normal range of motion. No edema. SKIN: Warm, dry, no rash. NEURO: Alert and oriented x3. PSYCH: Normal mood and affect. Course Course Emergency Course: Poor control with diltiazem. Discussed with cardiology recommends giving a dose of metoprolol. Patient should also receive Loveno
[2021-02-15 08:14] LABS: Anion Gap 15 mmol/L (8-16); Blood Urea Nitrogen 25 mg/dL (9-20); Calcium 9.8 mg/dL (8.4-10.2); Carbon Dioxide 23 mmol/L (22-30); Chloride 97 mmol/L (98-107); Estimated CRCL calculation 52 ml/min; Estimated Glomerular Filt Rate 49; Glucose 249 mg/dL (65-110); Sodium 135 mmol/L (137-145)
[2021-02-15 08:21] LABS: Prothrombin Time 13.4 Seconds (11.1-14.7)
[2021-02-15 08:31] LABS: NT Pro B Type Natriuretic Pept 3290 pg/mL (5-100); Troponin I 0.065 ng/mL (0.000-0.034)
--- NOTE | 2021-02-15 08:36 | PC.NURSE ---
ED Doc aware Diltiazem drip increased to 15 mg.
[2021-02-15] MEDS: METOPROLOL TARTRATE INJ 5 MG/5 ML VIAL IV PUSH (10:11)
[2021-02-15] MEDS: ENOXAPARIN 120 MG/0.8 ML SYRINGE 111 MG SUB-Q ×2 (10:47→20:17)
[2021-02-15] MEDS: FUROSEMIDE INJ 40 MG/4 ML VIAL IV PUSH ×2 (10:57→17:07)
[2021-02-15 11:41] LABS: Magnesium 1.9 mg/dL (1.6-2.3)
[2021-02-15 13:05] LABS: Troponin I 0.053 ng/mL (0.000-0.034)
--- NOTE | 2021-02-15 13:30 | PM.IMHP ---
H&P: HPI History of Present Illness Date/Time: 02/15/21 13:30 Chief Complaint: afib rvr Narrative: Pt is a 75-year-old male with a history of says atrial fibrillation, diabetes, GERD, SANA, and prostate cancer 10 years ago who presented emergency room for dyspnea on exertion found to be in AFib RVR. Patient was seen in the ER today and states he has been short of breath for about a week. He says that any time he walks a certain distance he feels out of breath and sitting down/ stopping helps. He has absolutely no chest pain with exertion, palpitations or diaphoresis with this. He is able to lay flat and has not noticed any swelling in his lower extremities. He went to his primary care physician about this and they did a heart monitor a few weeks ago which showed him to be in AFib. This has been stressing him out as he had a cardioversion in the past and is surprised that the AFib is back. He says when he is sitting down thinking about everything that is been going on he gets chest pain but does not think it is associated with exertion and thinks it is from stress. He says he has a chronic dry cough that has increased in the last week. As mentioned above, he has a history of AFib with a cardioversion. At 1 point he was on Xarelto and he had to be taken off of this due to anemia. He said he had multiple studies such as EGD, colonoscopy, GI red tag scan, and capsule study which did not show any source of the bleed. Once he was off the Xarelto his hemoglobin returned to normal. He denies nausea, vomiting, fevers, chills, diarrhea or constipation. He has been vaccinated against COVID-19 with the pfizer vaccine. He states he is unsure of any history of CHF but says he does have valve disease where his valve does not open all the way and that his loading inspector told him not to worry about it. His last echo was over 3 years ago. He states he is willing to try eliquis with close monitoring of his hgb. He states he has never had a cardiac cath or intervention. Review of Systems Review of Systems: All systems reviewed & are unremarkable except as noted in HPI and below PMFSH Past Medical History Medical History (Updated 02/15/21 @ 13:43 by Sandy Moran PA-C) A-fib Aortic stenosis Arthritis Chronic kidney disease, stage 3 Chronic systolic heart failure Diabetes mellitus HLD (hyperlipidemia) Mitral valve prolapse Prostate cancer Shortness of Breath Sleep apnea Surgical History Surgical History (Updated 02/15/21 @ 13:43 by Sandy Moran PA-C) Hx of appendectomy Hx of cholecystectomy Hx of prostatectomy Hx of vasectomy Family History Family History Father Lung cancer Diabetes mellitus Mother Cancer Father Family history of diabetes mellitus in first degree relative Family history of malignant melanoma Patient's father is Grandparent Diabetes mellitus Mother Patient's mother is Social History Social History (Updated 01/15/21 @ 07:42 by Isabel Golden MA) Social History: Patient lives with his . He is a full code. Occasional beer consumption. No smoking. Smoking status: Never smoker Second hand tobacco smoke exposure: No Alcohol intake: current Drinks per week: 2 Substance use: never Gender identity (if verbalized by the patient): Male Spiritual care concerns: No Agree to blood products: Yes Meds Home Medications and Allergies Home Medications Medication Instructions Recorded Confirmed Type aspirin 81 mg tablet,delayed 81 mg PO DAILY 07/26/19 02/06/21 History release multivitamin 1 tablet PO DAILY 07/26/19 02/06/21 History niacin 500 mg capsule,extended 500 mg PO QPM 07/28/19 02/06/21 History release Calcium 500 500 mg PO DAILY 08/25/19 02/06/21 History Calcium 600-D3 Plus (mag-zinc) 1 tablet PO BID 08/25/19 02/06/21 History amiodarone 200 mg tablet 200 mg P
--- NOTE | 2021-02-15 14:27 | PC.NURSE ---
2nd bag cardizem started after 1st bag finished.
[2021-02-15 14:35] LABS: Glucose Point of Care 256 mg/dl (65-105)
[2021-02-15 15:42] LABS: Troponin I 0.056 ng/mL (0.000-0.034)
--- NOTE | 2021-02-15 16:12 | ADMGEN ---
This patient, Danish Lu Jr., was admitted to IMU Room 211-01. at 15:30 Patient/family oriented to hospital policies and general routines including ID bracelet, bed and alarms, visiting hours, pain management, procedures, bathroom and other care routines, personal items, smoking policy, room service/diet, and visiting hours. Information on how to activate the Rapid Response Team has been discussed. Patient/Family are encouraged to report perceived risks to care and to ask questions if they do not understand what they are told or what they should do.
[2021-02-15 16:56] LABS: Glucose Point of Care 243 mg/dl (65-105)
[2021-02-15] MEDS: INSULIN ASPART (*BKC) 100 UNITS/ML SUB-Q (17:07)
[2021-02-15 20:53] LABS: Glucose Point of Care 226 mg/dl (65-105)
[2021-02-16] VITALS (22 sets, daily range): BP systolic 91–125; BP diastolic 58–82; PULSE 68–137; RESP 15–24; TEMP 36.4–36.6; O2SAT 90–99
[2021-02-16 05:34] LABS: Basophils Percent Auto 0.4 % (0.2-1.2); Eosinophils Absolute Auto 0.1 K/mm3 (0-0.3); Eosinophils Percent Auto 1.1 % (0-4.4); Hematocrit 36.4 % (42.0-52.0); Hemoglobin 11.9 g/dL (14.0-18.0); Immature Granulocyte Absolute 0.03 K/mm3 (0.00-0.031); Immature Granulocyte Percent A 0.4 % (0-0.5); Lymphocytes Absolute Auto 1.37 K/mm3 (0.9-3.2); Lymphocytes Percent Auto 19.1 % (18.3-44.2); Mean Corpuscular HGB Conc 32.7 g/dl (32-36); Mean Corpuscular Hemoglobin 30.9 pg (26-34); Mean Corpuscular Volume 94.5 fl (80-100); Mean Platelet Volume 9.8 fl (7.4-10.4); Monocytes Absolute Auto 0.7 K/mm3 (0.1-0.6); Monocytes Percent Auto 9.3 % (2.6-8.5); Neutrophils Percent Auto 69.7 % (45.5-73.1); Platelet Count Result 170 k/mm3 (150-375); Red Blood Count 3.85 M/mm3 (4.6-6.20); Red Cell Distribution Width 14.4 % (11.5-14.5); White Blood Count 7.2 K/mm3 (4.5-10.0)
[2021-02-16 05:46] LABS: Anion Gap 7 mmol/L (8-16); Blood Urea Nitrogen 29 mg/dL (9-20); Calcium 9.4 mg/dL (8.4-10.2); Carbon Dioxide 29 mmol/L (22-30); Chloride 100 mmol/L (98-107); Estimated CRCL calculation 48 ml/min; Estimated Glomerular Filt Rate 46; Glucose 176 mg/dL (65-110); Potassium 4.1 mmol/L (3.4-5.0); Sodium 136 mmol/L (137-145)
[2021-02-16 08:25] LABS: Glucose Point of Care 285 mg/dl (65-105)
[2021-02-16] MEDS: INSULIN ASPART (*BKC) 100 UNITS/ML SUB-Q ×3 (08:58→16:51)
[2021-02-16] MEDS: ENOXAPARIN 120 MG/0.8 ML SYRINGE 111 MG SUB-Q (10:24)
[2021-02-16] MEDS: PANTOPRAZOLE SODIUM IV 40 MG VIAL IV PUSH (10:24)
--- NOTE | 2021-02-16 11:20 | PM.CNCAR ---
Assessment and Plan Assessment and plan (1) Atrial fibrillation with rapid ventricular response: Code(s): I48.91 - Unspecified atrial fibrillation Status: Acute Assessment and Plan: Highly symptomatic AFib with very rapid ventricular response at the 180 beats per minute. Patient had a similar set of symptoms with AFib with RVR 2017. 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 Unfortunately, patient suffered GI bleed on Xarelto prompting discontinuation. He was on amiodarone 200 mg daily maintaining sinus rhythm which was discontinued in the remote past out of concern for pulmonary nodules and abnormal PFTs. He had PFT testing May 2020 which revealed significant improvement in prior diffusion capacity abnormalities. Very lengthy discussion held with regards nature of atrial fibrillation, his associated symptoms of poor tolerance. Rate control strategy is not appropriate given his level of symptomatology. Furthermore, risk associated cardioversion to restore sinus rhythm and history of GI bleed on anticoagulation were also discussed at length. Patient is willing to risk and monitor very closely for signs of bleeding on anticoagulation in order to obtain cardioversion to restore sinus rhythm. Balance of risk versus benefit discussed at length. He is in agreement wishes to proceed with anticoagulation and BUNNY guided cardioversion tomorrow morning. We also discussed at length Watchman device and potential benefit in reducing embolic stroke risk from atrial fibrillation without anticoagulation. We also discussed radiofrequency ablation of atrial fibrillation to reduce frequency and recurrence of AFib. It does not appear the resuming amiodarone is reasonable given his prior abnormal PFTs and improvement off amiodarone. Give additional IV metoprolol 5 mg and initiate metoprolol 25 mg p.o. Q 8 hour. Wean diltiazem drip as heart rate permits. All questions answered to his satisfaction. Spent 64 minutes in the care of this patient at bedside, chart review, documentation and medical decision making. Anticipate transition to Eliquis 5 mg b.i.d.. He wishes to avoid Xarelto if possible. We discussed warfarin as a potential option as well. (2) Shortness of Breath: Code(s): R06.02 - Shortness of breath Status: Acute Assessment and Plan: He does not appear to be in decompensated heart failure. However, given his history of tachycardia induced cardiomyopathy and the fact that he has likely been in atrial fibrillation with RVR for several weeks this remains a concern. Will assess LV function by BUNNY tomorrow. Discuss with Dr. Damon in a.m.. (3) History of GI bleed: Code(s): Z87.19 - Personal history of other diseases of the digestive system Status: Acute Assessment and Plan: Monitor very closely. Discussed this at length. He knows what to look for with bright red blood per rectum or melena. Will check hemoglobin serially as an outpatient likely on a weekly basis to start. Defer to Dr. Damon in this regard. (4) T2DM (type 2 diabetes mellitus): Code(s): E11.9 - Type 2 diabetes mellitus without complications Status: Acute (5) SANA treated with BiPAP: Code(s): G47.33 - Obstructive sleep apnea (adult) (pediatric) Status: Acute Assessment and Plan: Continue compliance with BiPAP. History of Present Illness History of Present Illness Consult date/time: Date of service: 02/16/21 11:20 Cardiology consultation at the request of Sandy Moran of the [facility] service for our opinion regarding atrial fibrillation with rapid ventricular response Requesting physician: Sandy Moran PA-C Consult reason: atrial fibrillation Reason For Visit: afib/rvr/chf Narrative: Patient is a pleasant 75-year-old male followed by Dr. Damon as an outpatient with a history of paroxysmal atrial fibrillation with poorly
[2021-02-16 12:20] LABS: Glucose Point of Care 211 mg/dl (65-105)
[2021-02-16] MEDS: METOPROLOL TARTRATE INJ 5 MG/5 ML VIAL IV PUSH (12:26)
[2021-02-16 12:35] LABS: Hematocrit 38.3 % (42.0-52.0); Hemoglobin 12.7 g/dL (14.0-18.0)
--- NOTE | 2021-02-16 13:16 | ECG_ITS ---
Measurements Intervals [place] Rate: 98 P: [place]: 0 QRS: 15 QRSD: 104 T: 153 QT: 370 QTc: 474 Interpretive Statements ATRIAL FIBRILLATION VENTRICULAR PREMATURE COMPLEXES BORDERLINE T WAVE ABNORMALITY- INF/LAT LEADS BASELINE ARTIFACT- III, V4-V6 ABNORMAL ECG Electronically Signed On 02-16-2021 16:34:30 CDT by Tommy Escalante D.O.
--- NOTE | 2021-02-16 13:35 | PM.IMPN ---
Progress Note: A&P Assessment and Plan (1) Atrial fibrillation with RVR: Code(s): I48.91 - Unspecified atrial fibrillation Status: Acute Assessment and Plan: Patient was found to be in AFib RVR with dyspnea on exertion on arrival to the ER - Continue Cardizem drip at 10 mg an hour patient he continues to be an added AFib and is symptomatic - troponins elevated but flat, no ACS suspected - BNP elevated, patient denies history of CHF but it is stated the EMR that he has systolic heart failure. TSH normal - he was given 1 dose of Lovenox in the ER and I will continue this cautiously (hgb stable). He has history of anemia with Xarelto but they could not find a source. He has a CHADS2 Vasc of at least 3, pending his echo results, and would be willing to try Eliquis with very frequent monitoring. Antonio zhu - cardiology consulted, I appreciate their recommendations. plan for cardioversion tomorrow -Of note, he has a hx of afib which improved with cardioversion in the past. No hx of PA or cardiac cath per pt (2) T2DM (type 2 diabetes mellitus): Code(s): E11.9 - Type 2 diabetes mellitus without complications Status: Acute Assessment and Plan: Last glucose 211 -Will order accuchecks and hold metformin -last A1c 09/2020 was 7.6 (3) Sleep apnea: Qualifiers: Sleep apnea type: obstructive Qualified Code(s): G47.33 - Obstructive sleep apnea (adult) (pediatric) Code(s): G47.30 - Sleep apnea, unspecified Status: Acute Assessment and Plan: Continue cpap (4) CHF (congestive heart failure): Code(s): I50.9 - Heart failure, unspecified Status: Acute Assessment and Plan: As noted above, EMR states he has a hx of CHF but pt denies this -will obtain echo -CXR showing bilateral disease which could be edema vs pna. He had a neg covid test last week. continue lasix, switch to oral (5) Chronic kidney disease, stage 3: Code(s): N18.3 - Chronic kidney disease, stage 3 (moderate) Status: Acute Assessment and Plan: Cr 1.5 today, at his baseline -monitor while on lasix Time Spent With Patient Time with patient: 25 - 35 minutes Subjective Date/time seen: 02/16/21 13:35 Interval history: Pt is a 75-year-old male here for AFib RVR. Patient was seen today and still feels very short of breath at rest and with conversation. He has no chest pain. Pt denies nausea, vomiting, fevers, chills, constipation, diarrhea, or abdominal pain. Review of Systems Review of Systems: All systems reviewed & are unremarkable except as noted in HPI and below Exam Narrative: General:Well developed well nourished patient HEENT: Normocephalic, atraumatic, PERRL, Sclerae anicteric, oral mucosa moist. Neck: Supple Resp: CTA Heart: Irregularly irregular with HR of 120 on exam Abd: Soft, nontender. No pain to palpation. Positive bowel sounds Skin: Warm and dry Extremities: No swelling, erythema or pain to palpation Neuro: Alert and Oriented x4 . CN 2-12 intact. No focal neurological deficits. Objective Data Vital Signs Vital Signs: Vital Signs - 24 hr 02/15/21 13:56 02/15/21 14:20 02/15/21 14:26 Temperature Pulse Rate 103 H 104 H 108 H Respiratory Rate 26 H Blood Pressure 102/77 115/88 115/88 Pulse Oximetry 95 02/15/21 15:11 02/15/21 15:30 02/15/21 16:00 Temperature 97.4 F L Pulse Rate 103 H 108 H 103 H Respiratory Rate 20 20 Blood Pressure 103/89 136/91 H Pulse Oximetry 96 98 02/15/21 16:10 02/15/21 18:00 02/15/21 19:33 Temperature 98.1 F Pulse Rate 113 H 86 Respiratory Rate 18 Blood Pressure 102/64 Pulse Oximetry 98 95 02/15/21 20:00 02/15/21 21:51 02/15/21 22:00 Temperature Pulse Rate 86 54 L 90 Respiratory Rate 22 H Blood Pressure Pulse Oximetry 94 02/16/21 00:00 02/16/21 02:00 02/16/21 03:21 Temperature 98 F Pulse Rate 111 H 84 86 Respiratory
[2021-02-16] MEDS: ACETAMINOPHEN 325 MG TABLET 650 MG PO (13:42)
[2021-02-16] MEDS: FUROSEMIDE 40 MG TABLET PO (14:30)
[2021-02-16] MEDS: METOPROLOL TARTRATE 25 MG TABLET PO ×2 (14:31→21:02)
[2021-02-16 15:25] LABS: Troponin I 0.059 ng/mL (0.000-0.034)
[2021-02-16 17:19] LABS: Glucose Point of Care 251 mg/dl (65-105)
[2021-02-16 20:28] LABS: Glucose Point of Care 210 mg/dl (65-105)
[2021-02-17] VITALS (30 sets, daily range): BP systolic 97–154; BP diastolic 57–124; PULSE 55–137; RESP 16–30; TEMP 35.6–36.7; O2SAT 91–100
[2021-02-17 05:15] LABS: Hematocrit 37.4 % (42.0-52.0); Hemoglobin 12.5 g/dL (14.0-18.0)
[2021-02-17 05:29] LABS: Anion Gap 11 mmol/L (8-16); Blood Urea Nitrogen 28 mg/dL (9-20); Calcium 9.5 mg/dL (8.4-10.2); Carbon Dioxide 25 mmol/L (22-30); Chloride 99 mmol/L (98-107); Estimated CRCL calculation 51 ml/min; Estimated Glomerular Filt Rate 49; Glucose 192 mg/dL (65-110); Sodium 135 mmol/L (137-145)
[2021-02-17] MEDS: METOPROLOL TARTRATE 25 MG TABLET PO ×2 (05:54→20:25)
[2021-02-17 09:09] LABS: Glucose Point of Care 208 mg/dl (65-105)
[2021-02-17] MEDS: ENOXAPARIN 120 MG/0.8 ML SYRINGE 111 MG SUB-Q (10:21)
[2021-02-17 12:36] LABS: Glucose Point of Care 198 mg/dl (65-105)
--- NOTE | 2021-02-17 13:22 | WPDMODSED ---
Moderate Sedation Note-Pt Data Patient Data Diagnosis: history of atrial fibrillation status post cardioversion several years ago with evidence of tachycardia mediated cardiomyopathy at that time now with symptomatic recurrence of atrial fib Present Complaint: generalized weakness Procedure to be performed/Plan: BUNNY/cardioversion Allergies Allergy/AdvReac Type Severity Reaction Status Date / Time lisinopril AdvReac Mild Cough Verified 02/15/21 07:35 Home Medications Medication Instructions Recorded Confirmed Type aspirin 81 mg tablet,delayed 81 mg PO DAILY 07/26/19 02/15/21 History release multivitamin 1 tablet PO DAILY 07/26/19 02/15/21 History niacin 500 mg capsule,extended 500 mg PO QPM 07/28/19 02/15/21 History release Calcium 500 500 mg PO DAILY 08/25/19 02/15/21 History Calcium 600-D3 Plus (mag-zinc) 1 tablet PO BID 08/25/19 02/15/21 History tztxkqd-wnyjnuchs-inbl 333 mg-133 333 tablet PO DAILY 09/26/19 02/15/21 History mg-5 mg tablet furosemide 20 mg tablet 20 mg PO QAM 09/26/19 02/15/21 History pantoprazole 40 mg tablet,delayed See Rx Instructions .ROUTE 10/07/20 02/15/21 Rx release .COMPLEX #90 tablet blood sugar diagnostic See Rx Instructions .ROUTE 10/17/20 02/15/21 Rx .COMPLEX #200 each Slow Fe 142 mg (45 mg iron) See Rx Instructions .ROUTE 12/23/20 02/15/21 Rx tablet,extended release .COMPLEX #180 tablet NS atorvastatin 40 mg tablet 40 mg PO DAILY #90 tablet 12/23/20 02/15/21 Rx metformin 500 mg tablet See Rx Instructions .ROUTE 01/20/21 02/15/21 Rx .COMPLEX #180 tablet Current Medications: Active Medications Acetaminophen (Acetaminophen 325 Mg Tablet) 650 mg PO Q4H PRN PRN Reason: Mild Pain (1-3) or Fever Last Admin: 02/16/21 13:42 Dose: 650 mg Documented by: Hydrocodone Bitart/Acetaminophen (Hydrocodone/Acetaminophen (*Crx) 5-325 Mg Tablet) 1 tab PO Q4H PRN PRN Reason: Pain Rated 4-6 Dextrose (Dextrose 50% 25 Gm/50 Ml Syringe) 12.5 gm IV PUSH PRN PRN; Protocol PRN Reason: Hypoglycemia Enoxaparin Sodium (Enoxaparin 120 Mg/0.8 Ml Syringe) 111 mg SUB-Q Q12HR [facility] Last Admin: 02/17/21 10:21 Dose: 111 mg Documented by: Furosemide (Furosemide 40 Mg Tablet) 40 mg PO DAILY [facility] Last Admin: 02/16/21 14:30 Dose: 40 mg Documented by: Glucagon (Glucagon For Inj 1 Mg Vial) 1 mg IM PRN PRN; Protocol PRN Reason: Hypoglycemia Glucose (Glucose Oral Gel 15 Gm Of Glucse In 37.5 Gm Tube) 15 gm PO PRN PRN; Protocol PRN Reason: Hypoglycemia Dextrose (Dextrose 5% 1,000 Ml) 1,000 mls @ 100 mls/hr IVPB PRN PRN; Protocol PRN Reason: Hypoglycemia Diltiazem HCl (Cardizem 100 Mg/D5w 100 Ml) 100 mg in 100 mls @ 5 mls/hr IV CONT .Q20H [facility] Last Infusion: 02/17/21 12:00 Dose: 5 mg/hr, 5 mls/hr Documented by: Insulin Aspart (Insulin Aspart (*Bkc) 100 Units/Ml) 2 - 5 units SUB-Q TIDWM [facility]; Protocol Last Admin: 02/17/21 12:42 Dose: Not Given Documented by: Metoprolol Tartrate (Metoprolol Tartrate 25 Mg Tablet) 25 mg PO Q8H [facility] Last Admin: 02/17/21 05:54 Dose: 25 mg Documented by: Morphine Sulfate (Morphine Sulfate (*Crx) 4 Mg/Ml Inj) 4 mg IV PUSH Q2H PRN PRN Reason: Pain Rated 7-10 Ondansetron HCl (Ondansetron Inj 4 Mg/2 Ml Vial) 4 mg IV PUSH Q4H PRN PRN Reason: Nausea Pantoprazole Sodium (Pantoprazole Sodium Iv 40 Mg Vial) 40 mg IV PUSH QAM [facility] Last Admin: 02/16/21 10:24 Dose: 40 mg Documented by: Sedation/Anesthesia: No previous sedation/anesthesia problems (including family history). FORMERLY [facility], [facility] Past Medical History Medical History A-fib Aortic stenosis Arthritis Chronic kidney disease, stage 3 Chronic systolic heart failure Diabetes mellitus HLD (hyperlipidemia) Mitral valve prolapse Prostate cancer Shortness of Breath Sleep apnea Surgical History Surgical History Hx of appendectomy Hx of cholecystectomy Hx of prostatectomy Hx of vasectomy Fam
--- NOTE | 2021-02-17 13:25 | PC.NURSE ---
Pt to [facility] for cardioversion. Cardizem drip infusing
--- NOTE | 2021-02-17 14:19 | WPDTECDV ---
CAN with Cardioversion Date of procedure: 02/17/21 Procedure Type: Can/cardioversion Diagnosis: recurrent atrial fib cardiomyopathy Indications: recurrent symptomatic atrial fib Description of Procedure: patient was brought to the cardiac catheterization lab holding area in the postabsorptive state. He was in the supine position where defibrillator patches were placed in the AP position. Oropharyngeal Cetacaine was then spray for topical anesthesia and a bite block was placed into position. Following this the patient was sedated using intravenous propofol. 40 mg was given followed by another 30 for a total dose of 70 mg. This provided excellent sedation. The esophagus was intubated with the CAN probe and the left atrium was inspected carefully. The atrium is very large and dilated with evidence of spontaneous contrast but no visible atrial thrombus. The appendage was well visualized. The left ventricle is normal in size and is severely hypodynamic in a global fashion. Following confirmation of no intracardiac clot the CAN probe was removed and patient was cardioverted with 200 joules in a synchronized fashion which failed to restore sinus rhythm. He was then cardioverted 2nd time in a synchronized fashion at 360 joules which did restore normal sinus rhythm. Sedation: Propofol total of 70 mg Findings: as above Conclusion: successful uncomplicated CAN/cardioversion in this patient with recurrent atrial fib in cardiomyopathy failing at 200 joules and then success succeeding at 360 joules. CAN prior to cardioversion confirmed no evidence of visible thrombus in the left atrial appendage
--- NOTE | 2021-02-17 14:20 | ECG_ITS ---
Measurements Intervals [place] Rate: 68 P: 53 [place]: 183 QRS: -5 QRSD: 104 T: 156 QT: 440 QTc: 469 Interpretive Statements SINUS RHYTHM VENTRICULAR BIGEMINY T WAVE ABNORMALITY IN ANTEROLAT/HIGH LAT LEADS- CONSIDER ISCHEMIA BASELINE ARTIFACT- I, II, III, V4-V6 ABNORMAL ECG Electronically Signed On 02-17-2021 15:38:40 CDT by Tommy Escalante D.O.
--- NOTE | 2021-02-17 15:07 | PM.IMPN ---
Progress Note: A&P Assessment and Plan (1) Atrial fibrillation with RVR: Code(s): I48.91 - Unspecified atrial fibrillation Status: Acute Assessment and Plan: Patient was found to be in AFib RVR with dyspnea on exertion on arrival to the ER which is unchanged - pt was on IV cardizem but was cardioverted today and placed on sotalol. So far, his EKG shows NSR - troponins elevated but flat, no ACS suspected -BUNNY mentions the left ventricle was normal in size and is severely hypodynamic in a global fashion. I have a call out to cardiology for further clarification of his HF status. - BNP elevated, patient denies history of CHF but it is stated the EMR that he has systolic heart failure. TSH normal -Pt has been doing well on lovenox and will transition to eliquis today. He has history of severe anemia with Xarelto but they could not find a source. He has a CHADS2 Vasc of at least 3, pending his echo results, and would be willing to try Eliquis with very frequent monitoring of his hgb. Eliquis [place] is $400 but he says he will pay for it if he needs it. He is also compliant and may do warfarin if cardiology is comfortable with that. Will defer to them. -Of note, he has a hx of afib which improved with cardioversion in the past. No hx of RI or cardiac cath per pt (2) T2DM (type 2 diabetes mellitus): Code(s): E11.9 - Type 2 diabetes mellitus without complications Status: Acute Assessment and Plan: Last glucose 198 -Continue accuchecks and hold metformin -last A1c 09/2020 was 7.6 (3) Sleep apnea: Qualifiers: Sleep apnea type: obstructive Qualified Code(s): G47.33 - Obstructive sleep apnea (adult) (pediatric) Code(s): G47.30 - Sleep apnea, unspecified Status: Acute Assessment and Plan: Continue cpap (4) CHF (congestive heart failure): Code(s): I50.9 - Heart failure, unspecified Status: Acute Assessment and Plan: As noted above, EMR states he has a hx of CHF but pt denies this -BUNNY showed The left ventricle is normal in size and is severely hypodynamic in a global fashion. Will await more details of this from cardiology -CXR showing bilateral disease which could be edema vs pna. He had a neg covid test last week. -continue lasix (5) Chronic kidney disease, stage 3: Code(s): N18.3 - Chronic kidney disease, stage 3 (moderate) Status: Acute Assessment and Plan: Cr 1.4 today, at his baseline -monitor while on lasix Subjective Date/time seen: 02/17/21 15:07 Interval history: Pt is a 75-year-old male here for AFib RVR. Patient was seen today and still feels very short of breath at rest and with conversation. He has no chest pain. Pt denies nausea, vomiting, fevers, chills, constipation, diarrhea, or abdominal pain. Last BM today. Exam Narrative: General:Well developed well nourished patient HEENT: Normocephalic, atraumatic, PERRL, Sclerae anicteric, oral mucosa moist. Neck: Supple Resp: CTA, conversational dyspnea Heart: Irregularly irregular with HR of 118 on exam Abd: Soft, nontender. No pain to palpation. Positive bowel sounds Skin: Warm and dry Extremities: No swelling, erythema or pain to palpation Neuro: Alert and Oriented x4 . CN 2-12 intact. No focal neurological deficits. Objective Data Vital Signs Vital Signs: Vital Signs - 24 hr 02/16/21 16:00 02/16/21 18:00 02/16/21 20:00 Temperature 97.8 F 97.6 F Pulse Rate 93 101 H 91 Respiratory Rate 24 H 20 Blood Pressure 97/76 L 109/75 Pulse Oximetry 97 95 02/16/21 21:02 02/16/21 22:00 02/16/21 22:49 Temperature Pulse Rate 107 H 98 84 Respiratory Rate 16 Blood Pressure Pulse Oximetry 94 02/16/21 23:34 02/17/21 00:00 02/17/21 01:59 Temperature 97.9 F Pulse Rate 108 H 98 97 Respiratory Rate 20 Blood Pressure 125/69 Pulse Oximetry 99 02/17/21 02:19 02/17/21 04:00 02/17/21 05:54 Temperature 9
--- NOTE | 2021-02-17 15:35 | PC.NURSE ---
Pt returned from pharmaceutical laboratory technician
--- NOTE | 2021-02-17 15:44 | ECG_ITS ---
Measurements Intervals [place] Rate: 84 P: 85 MA: 183 QRS: 9 QRSD: 102 T: 137 QT: 424 QTc: 504 Interpretive Statements SINUS RHYTHM VENTRICULAR COUPLET, VENTRICULAR BIGEMINY T WAVE ABNORMALITY IN ANTEROLATERAL LEADS- CONSIDER ISCHEMIA ABNORMAL ECG Electronically Signed On 02-17-2021 16:48:31 CDT by Tommy Escalante D.O.
--- NOTE | 2021-02-17 15:46 | SUR.PHASEII ---
BUNNY/ CV completed. First attempt to CV at 200J was not effective. Pt converted to NSR w multifocal PVC's after CV at 360J. Pt noted to have small amount of blood in his mouth after BUNNY/CV. Pt instructed about noted blood in his mouth and to inform nurse if he has any noted problems in his mouth - ie gums or teeth. After transferring pt to IMU -pt called and said he noted a loose tooth - top tight lateral incisor - Dr Damon aware of loose tooth.
[2021-02-17 16:05] LABS: Glucose Point of Care 206 mg/dl (65-105)
[2021-02-17] MEDS: FUROSEMIDE 40 MG TABLET PO (16:08)
[2021-02-17] MEDS: INSULIN ASPART (*BKC) 100 UNITS/ML SUB-Q (16:08)
[2021-02-17] MEDS: PANTOPRAZOLE SODIUM IV 40 MG VIAL IV PUSH (16:08)
[2021-02-17] MEDS: HYDROcodone/acetaminophen (*CRX) 5-325 MG TABLET 1 TAB PO (20:25)
[2021-02-17] MEDS: APIXABAN 5 MG TABLET PO (20:26)
[2021-02-17] MEDS: SOTALOL HCL 80 MG TABLET PO (20:26)
[2021-02-17 20:27] LABS: Glucose Point of Care 227 mg/dl (65-105)
--- NOTE | 2021-02-17 22:59 | ECG_ITS ---
Measurements Intervals [place] Rate: 82 P: 80 ID: 185 QRS: -5 QRSD: 95 T: 123 QT: 430 QTc: 503 Interpretive Statements SINUS RHYTHM VENTRICULAR PREMATURE COMPLEXES DELAYED PRECORDIAL R/S TRANSITION T WAVE ABNORMALITY IN ANTEROLATERAL LEADS- CONSIDER ISCHEMIA BASELINE ARTIFACT- I, II, III, V4-V6 ABNORMAL ECG Electronically Signed On 02-18-2021 8:53:26 CDT by Tommy Escalante D.O.
[2021-02-18] VITALS (25 sets, daily range): BP systolic 65–118; BP diastolic 54–100; PULSE 58–84; RESP 15–50; TEMP 34.4–36.8; O2SAT 93–100
[2021-02-18] MEDS: METOPROLOL TARTRATE 25 MG TABLET PO (05:03)
[2021-02-18 05:34] LABS: Hematocrit 36.6 % (42.0-52.0); Hemoglobin 12.1 g/dL (14.0-18.0)
[2021-02-18 06:00] LABS: Alanine Aminotransferase 36 U/L (4-50); Albumin Level 3.8 g/dL (3.5-5.1); Alkaline Phosphatase 101 U/L (38-126); Anion Gap 10 mmol/L (8-16); Aspartate Amino Transferase 33 U/L (17-59); Bilirubin,Total 2.5 mg/dL (0.2-1.3); Blood Urea Nitrogen 31 mg/dL (9-20); Calcium 9.1 mg/dL (8.4-10.2); Carbon Dioxide 23 mmol/L (22-30); Chloride 100 mmol/L (98-107); Estimated CRCL calculation 59 ml/min; Estimated Glomerular Filt Rate 59; Glucose 211 mg/dL (65-110); Potassium 4.2 mmol/L (3.4-5.0); Sodium 133 mmol/L (137-145)
--- NOTE | 2021-02-18 06:57 | PDCODEBLUE ---
Code Blue Note Code Blue Note Time Arrived at Code Blue: 6:19 Initial Rhythm on Arrival: Torsade Airway Management: No need Chest Compressions: In process on arrival to bedside Result of Code Blue: Pt regained consciousness Cardiac Rhythm Post Code: Sinus rhythm Code Blue Summary: Patient with agonal breathing initial rhythm analysis showed Torsade rapid response was called then patient became unresponsive and code blue was called CPR was initiated chest compressions, epi x 3, bicarb x 2, Mag sulfate 2 g iv x1 patient achieved ROSC and transferred over to ICU. Patient with spontaneous breathing needed bagging for the first few minutes then placed on non rebreather maintaining sats.
[2021-02-18 07:01] LABS: Alveolar/Arterial O2 Gradient 577.1 mmHg; Base Excess ABG -10.6 mEq/l (+/-2.0); Carboxyhemoglobin 0.4 % THb (0-2.0); Fractional Inspired Oxygen 100 %; HCO3 ABG 16.8 mEq/l (22.0-26.0); Methemoglobin ABG 0.4 %THb (0-1.5); Oxygen Saturation ABG 95.6 % (95.0-100.0); Oxyhemoglobin 93.6 % THb (90.0-100.0); PCO2 ABG 42.9 mmHg (35.0-45.0); PO2 FiO2 Ratio Arterial Blood 0.93 %; Reduced Hemoglobin 5.6 %THb (0-5.0); Total Hemoglobin 14.4 g/dL (12.0-18.0)
[2021-02-18 07:03] LABS: Modified Allen's Test Unable to perform; Site Drawn LEFT RADIAL; pH ABG 7.212 (7.350-7.450)
[2021-02-18 07:04] LABS: Device NON-REBREATHER MASK
[2021-02-18] MEDS: ALBUTEROL SULFATE NEB 2.5 MG/0.5 ML INH INHALATION (07:31)
[2021-02-18] MEDS: IPRATROPIUM BR 0.02% INH SOLN 0.5 MG/2.5 ML VIAL INHALATION (07:31)
[2021-02-18 07:48] LABS: Glucose Point of Care 330 mg/dl (65-105)
[2021-02-18 07:55] LABS: Basophils Absolute Auto 0.1 K/mm3 (0.0-0.1); Basophils Percent Auto 0.5 % (0.2-1.2); Eosinophils Absolute Auto 0.1 K/mm3 (0-0.3); Eosinophils Percent Auto 0.5 % (0-4.4); Hematocrit 41.2 % (42.0-52.0); Hemoglobin 13.3 g/dL (14.0-18.0); Immature Granulocyte Absolute 0.38 K/mm3 (0.00-0.031); Immature Granulocyte Percent A 3.1 % (0-0.5); Lymphocytes Absolute Auto 1.99 K/mm3 (0.9-3.2); Lymphocytes Percent Auto 16.1 % (18.3-44.2); Mean Corpuscular HGB Conc 32.3 g/dl (32-36); Mean Corpuscular Hemoglobin 30.9 pg (26-34); Mean Corpuscular Volume 95.8 fl (80-100); Mean Platelet Volume 10.1 fl (7.4-10.4); Monocytes Absolute Auto 0.6 K/mm3 (0.1-0.6); Monocytes Percent Auto 5.2 % (2.6-8.5); Neutrophils Absolute Auto 9.2 K/mm3 (1.3-6.7); Neutrophils Percent Auto 74.6 % (45.5-73.1); Platelet Count Result 245 k/mm3 (150-375); Red Cell Distribution Width 14.5 % (11.5-14.5); White Blood Count 12.3 K/mm3 (4.5-10.0)
[2021-02-18 08:02] LABS: INR 1.3; Prothrombin Time 16.1 Seconds (11.1-14.7)
--- NOTE | 2021-02-18 08:02 | ECHO_ITS ---
Patient Info Name: Danish Lu Age: 75 years : 1945 Gender: Male Ht: 70 in Wt: 244 lbs BSA: 2.38 m2 HR: 67 bpm BP: 101 / 59 mmHg Heart Rhythm: Sinus Rhythm Technical Quality: Fair Exam Date: 02/18/2021 8:32 AM Exam Location: [facility] Patient Status: Inpatient Admit Date: 02/16/2021 Staff Ordering Physician: Yohana Frederick MD Helper Marble Finisher: Nelly Hyatt RDCS Attending Provider: Sandy Moran PA-C Referring Physician: Otoniel WHITE; Exam Type: CA echo dop color flow w con Study Info Indications I46.9 - Cardiac arrest, cause unspecified Complete two-dimensional, color flow and Doppler transthoracic echocardiogram is performed with contrast to opacify the left ventricle and to improve the deliniation of the left ventricle endocardial borders. Contrast/Agitated Saline Contrast/Ag. Saline: Definity Amount: 1.00 ml Administered By: Rachel Bedolla RN Existing IV Access: Yes IV Access Condition: patent with no signs of infiltration Summary 1. Left ventricular chamber dimension is mildly enlarged. 2. Left ventricular systolic function is severely reduced, estimated at 20-25%. 3. There is mildly increased left ventricular wall thickness. 4. The left ventricular diastolic function is grade II diastolic dysfunction. 5. There is no appreciable thrombus visualized in the left ventricle. 6. Left atrial chamber dimension is moderately enlarged. 7. Right atrial chamber dimension is moderately enlarged. 8. There is moderate to severe aortic valve stenosis with a peak velocity of 329.56 cm/s, mean gradient of 33 mmHg, and aortic valve area of 0.88 cm2. Severity may be underestimated due to low cardiac output. Clinical correlation advised. Left Ventricle Left ventricular chamber dimension is mildly enlarged. Left ventricular systolic function is severely reduced, estimated at 20-25%. There is mildly increased left ventricular wall thickness. The left ventricular diastolic function is grade II diastolic dysfunction. There is no appreciable thrombus visualized in the left ventricle. Right Ventricle Right ventricular chamber dimension is not well visualized. Right ventricular systolic function is reduced. Left Atria Left atrial chamber dimension is moderately enlarged. Right Atria Right atrial chamber dimension is moderately enlarged. Aortic Valve The aortic valve is not well visualized. There is moderate to severe aortic valve stenosis with a peak velocity of 329.56 cm/s, mean gradient of 33 mmHg, and aortic valve area of 0.88 cm2. Severity may be underestimated due to low cardiac output. Clinical correlation advised. Pulmonic Valve The pulmonic valve is not well visualized. Mitral Valve The mitral valve has thickened leaflets. There is trace mitral valve regurgitation. The mitral valve annulus is moderately calcified. Tricuspid Valve The tricuspid valve leaflets are normal. There is mild tricuspid valve regurgitation. Moderate pulmonary hypertension, estimated pulmonary arterial systolic pressure is 45 mmHg. Pericardium/Pleural The pericardium appears normal. There is trivial pericardial effusion. Inferior Vena Cava Normal inferior vena cava with <50% collapse upon inspiration consistent with elevated right atrial pressure, 10 mmHg. Aorta The aortic root size at the sinus of Valsalva is mildly dilated. There is moderate-severe aortic atherosclerosis. Left Ventricul
[2021-02-18 08:03] LABS: Partial Thromboplastin Time 29.2 SECONDS (22.3-36.8)
[2021-02-18 08:04] LABS: Ammonia 32 umol/L (9-30)
[2021-02-18 08:05] LABS: Anion Gap 19 mmol/L (8-16); Blood Urea Nitrogen 32 mg/dL (9-20); Calcium 8.9 mg/dL (8.4-10.2); Carbon Dioxide 16 mmol/L (22-30); Chloride 94 mmol/L (98-107); Estimated CRCL calculation 48 ml/min; Estimated Glomerular Filt Rate 46; Glucose 333 mg/dL (65-110); Potassium 5.1 mmol/L (3.4-5.0); Sodium 129 mmol/L (137-145)
--- NOTE | 2021-02-18 08:05 | ECG_ITS ---
Measurements Intervals [place] Rate: 69 P: 84 LA: 193 QRS: 4 QRSD: 105 T: 162 QT: 567 QTc: 609 Interpretive Statements SINUS RHYTHM VENTRICULAR PREMATURE COMPLEX T WAVE ABNORMALITY IN ANT/HIGH LAT LEADS- CONSIDER ISCHEMIA BASELINE WANDER- V4-V6 ABNORMAL ECG Electronically Signed On 02-18-2021 8:28:43 CDT by Tommy Escalante D.O.
[2021-02-18 08:07] LABS: Lactic Acid Reflex 7.4 mmol/L (0.7-2.1)
[2021-02-18] MEDS: FUROSEMIDE INJ 40 MG/4 ML VIAL IV PUSH ×2 (08:15→08:16)
[2021-02-18] MEDS: SODIUM BICARBONATE 8.4% 50 MEQ/50 ML SYRINGE (08:15)
[2021-02-18] MEDS: INSULIN ASPART (*BKC) 100 UNITS/ML 6 UNITS SUB-Q (08:15)
[2021-02-18] MEDS: NITROGLYCERIN SL 0.4 MG TABLET SUBLINGUAL (08:16)
[2021-02-18 08:20] LABS: Troponin I 0.077 ng/mL (0.000-0.034)
--- NOTE | 2021-02-18 08:23 | PM.IMPN ---
Progress Note: A&P Assessment and Plan (1) Cardiac arrest: Code(s): I46.9 - Cardiac arrest, cause unspecified Status: Acute Assessment and Plan: Patient had ectopy overnight and ultimately went into Torsades probably related to the sotalol. Moved to ICU. Cardiology and handstitching machine collar feller aware. CXR showing worsening CHF findings. EKG shownig inverted T waves anterolateral leads (CXR and EKG reviewed personally). Anion gap Metabolic acidosis related to the lactic acidosis from the code. Mag 2.0 -> 3.0. Plan to stop sotalol and lopressor. Change to lovenox or heparin. No plans for LHC at this time. Monitor closely. Trend EKGs and Trop. Discussed with intensivsit and cardiology (2) Atrial fibrillation with RVR: Code(s): I48.91 - Unspecified atrial fibrillation Status: Acute Assessment and Plan: Patient was found to be in AFib RVR with dyspnea on exertion on arrival to the ER. Pt was on IV Cardizem through 02/17; Lopressor added. He was cardioverted on 02/17 to NSR. Sotalol was added. Post-procedure, EKG showing NSR, PVCs and T wave changes in the anterolateral leads. Troponins elevated but flat, no ACS suspected. Suspect nonischemic myocardial injury from the AFib/RVR and CHF. TSH normal. CHADS2 Vasc of at least 3. He has history of severe anemia with Xarelto but they could not find a source. He was started on Lovenox and transitioned to Eliquis. As above. Monitor HH. (3) Hematuria: Code(s): R31.9 - Hematuria, unspecified Status: Acute Assessment and Plan: Patient had Thrasher placed with some resistance and now with hematuria. Concern for false-tracking or related to the Eliquis. Urology consulted. (4) CHF (congestive heart failure): Code(s): I50.9 - Heart failure, unspecified Status: Acute Assessment and Plan: As noted above, EMR states he has a hx of CHF but pt denies this. Echo in Mar 2019 showing EF 55% and Grade II diastolic dysfunction and moderate and moderate pulmonary HTN (49mmHg). BUNNY 02/17 showing normal LV in size and is severely hypodynamic in a global fashion (25% by report from cardiology). CXR on admission showing diffuse bilateral disease (possibly chronic?). BNP 3290 to suggest acute CHF exacerbation on admission related to the RVR. COVID negative last week. I/Os about even. CXR worse this morning related to the cardiac arrest. Lasix IV given 40mg IV x 2 doses. Monitor closely and may need further diuresis. (5) T2DM (type 2 diabetes mellitus): Code(s): E11.9 - Type 2 diabetes mellitus without complications Status: Acute Assessment and Plan: A1c 7.6 in September 2020. The patient's blood glucose was reviewed on 02/18. Glucose remains poorly controlled. Continue AccuCheks covering with sliding scale. Hypoglycemia protocol available as needed. Continue to monitor. Continue to hold metformin (6) Chronic kidney disease, stage 3: Code(s): N18.3 - Chronic kidney disease, stage 3 (moderate) Status: Acute Assessment and Plan: Cr 1.4 on admission with baseline about 1.2-1.4. Cr was 1.2 this morning but back up to 1.5 now related to the cardiac arrest. Probably ATN from the event. Monitor closely. He has been receiving Lasix this morning. Monitor closely. (7) Sleep apnea: Qualifiers: Sleep apnea type: obstructive Qualified Code(s): G47.33 - Obstructive sleep apnea (adult) (pediatric) Code(s): G47.30 - Sleep apnea, unspecified Status: Acute Assessment and Plan: Stable. Continue CPAP at sleep and as needed. Wean off NIV when he is more stable (8) DVT prophylaxis: Code(s): Z29.9 - Encounter for prophylactic measures, unspecified Status: Acute Assessment and Plan: Mark on board currently. Consider holding if hematuria worsens Subjective Date/time seen: 02/18/21 08:23 Interval history: 75yo male with hx of AFib, DM, SANA, CHF and CK
--- NOTE | 2021-02-18 08:38 | ECG_ITS ---
Measurements Intervals [place] Rate: 65 P: 46 SC: 190 QRS: 2 QRSD: 106 T: 149 QT: 586 QTc: 612 Interpretive Statements SINUS RHYTHM T WAVE ABNORMALITY IN ANTEROLAT/HIGH LAT LEADS- CONSIDER ISCHEMIA ABNORMAL ECG Electronically Signed On 02-18-2021 10:14:12 CDT by Tommy Escalante D.O.
[2021-02-18] MEDS: MORPHINE SULFATE (*CRX) 2 MG/ML INJ IV PUSH (08:44)
[2021-02-18] MEDS: PERFLUTREN LIPID MICROSPHERES 1.5 ML VIAL DILUTED TO 10 ML TOTAL VOLUME IV PUSH (09:35)
--- NOTE | 2021-02-18 10:15 | PM.PNCARD ---
Progress Note: A&P Assessment and Plan (1) Polymorphic ventricular tachycardia: Code(s): I47.2 - Ventricular tachycardia Status: Acute Assessment and Plan: Probable initial torsades related to QT prolongation. QT prolongation post cardiac arrest 600 milliseconds after single dose sotalol 80 mg last night. Status post defibrillation, CPR compressions with resuscitation. Monitor serial 12 lead EKG for QTc. Repeat later this AM and again this afternoon to document shortening of QTc to clarify risk and guide therapy. Repeat again as clinically indicated bu without question in AM and likely every 4-6 hours thereafter until QTc improves and pt stabilizes. Follow electrolytes particularly Mg and K+, renal function. Pt remains at high risk for recurrence of ventricular arrhythmias at this time. Keep in ICU on telemetry with very close observation. Defib pads in place. Spent 75 minutes in the care of this patient including at bedside with examination, care team discussions, chart review, and medical decision making. (2) Cardiac arrest: Code(s): I46.9 - Cardiac arrest, cause unspecified Status: Acute Assessment and Plan: As above. (3) QT prolongation: Code(s): R94.31 - Abnormal electrocardiogram [ECG] [EKG] Status: Acute Assessment and Plan: Occurred after single 80 mg dose of sotalol. Pre dose 12 lead EKG QT corrected reported less reliable/accurate due to frequent PVCs on tracing. Post dose QTc 468msec. (4) Cardiomyopathy: Code(s): I42.9 - Cardiomyopathy, unspecified Status: Acute Assessment and Plan: Severe LV dysfunction less than 20% this morning by repeat 2D echocardiogram at bedside. 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 Chest pain highly atypical, reproducible occurred after chest compressions and defibrillation worse with deep breathing and coughing most likely musculoskeletal. Anticipate troponins to rise but recommend continued serial assessment. Recommendation follow. Discussed at length with my communication instructor Dr. Garcia. Patient does not have ST-elevation on EKG justifying emergent coronary angiography as patient is at very high risk for bleeding complications given his history and full anticoagulation post cardioversion. Furthermore, with marked QT prolongation and recent ventricular tachycardia patient high risk for ventricular arrhythmia complications with coronary angiography. For these reasons, it was deemed inappropriate and a greater risk than benefit in proceeding at this time. We will continue to hold oral anticoagulation, heparin infusion in the interval when stable from a urologic perspective. Continue to monitor very closely for bleeding. IV Lasix appropriate as tolerated. Avoid, CCB,BB, or any other antiarrhythmic agent. Favor faster heart rates in general in SR. Pt MUST NOT be given Sotalol. Has intolerance in past to Amiodarone. (5) CHF (congestive heart failure): Code(s): I50.9 - Heart failure, unspecified Status: Acute Assessment and Plan: As above, IV Lasix. supportive care, avoid intubation unless absolutely necessary. NIPPV preferrable. (6) Atrial fibrillation with rapid ventricular response: Code(s): I48.91 - Unspecified atrial fibrillation Status: Acute Assessment and Plan: Highly symptomatic AFib with very rapid ventricular response at the 180 beats per minute at presentation. s/p BUNNY-guided CV , EF per Dr. Damon 25%. -SR post CV maintained. h/o Amiodarone related pulmonary toxicity concerns related to abnormal PFT's. Started on Sotalol 80mg loading dose first dose last night, QTc post dose 468msec. (7) History of GI bleed: Code(s): Z87.19 - Personal history of other diseases of the digestive system Status: Acute Assessment and Plan: Monitor very closely. Eliquis on hold due hematuria. Cysto pending
[2021-02-18] MEDS: SODIUM BICARBONATE 8.4% 50 MEQ/50 ML SYRINGE IV PUSH (10:24)
[2021-02-18] MEDS: PANTOPRAZOLE SODIUM IV 40 MG VIAL IV PUSH (10:24)
[2021-02-18] MEDS: LORazepam INJ (*CRX) 2 MG/ML VIAL 0.25 MG IV PUSH (10:24)
[2021-02-18 10:50] LABS: Reflex Lactic Acid Yes or No Add Lactic
--- NOTE | 2021-02-18 11:27 | ECG_ITS ---
Measurements Intervals [place] Rate: 67 P: 86 [place]: 181 QRS: 0 QRSD: 105 T: 174 QT: 563 QTc: 598 Interpretive Statements SINUS RHYTHM T WAVE ABNORMALITY IN ANTEROLAT/HIGH LAT LEADS- CONSIDER ISCHEMIA PROLONGED QT INTERVAL ABNORMAL ECG Electronically Signed On 02-18-2021 12:26:55 CDT by Tommy Escalante D.O.
[2021-02-18 11:32] LABS: Glucose Point of Care 290 mg/dl (65-105)
[2021-02-18] MEDS: INSULIN ASPART (*BKC) 100 UNITS/ML SUB-Q ×2 (11:40→16:34)
--- NOTE | 2021-02-18 12:10 | PCCARD ---
AROUND 10:00- 10:15 NOTIFIED THE [facility] ECHO ORDERED STAT BY DR ANDERSON WAS READY TO BE READ
[2021-02-18 12:26] LABS: Troponin I 0.134 ng/mL (0.000-0.034)
--- NOTE | 2021-02-18 13:13 | WPDURCON ---
Assessment and Plan Assessment and plan (1) Prostate cancer: Code(s): C61 - Malignant neoplasm of prostate Status: Acute Assessment and Plan: Patient states has psa checked by his primary (2) Urethral stricture: Code(s): N35.919 - Unspecified urethral stricture, male, unspecified site Status: Acute Assessment and Plan: Plan for cysto for dumont placement. Urology Consult Note HPI Date Seen: 02/18/21 Requesting Physician: Sandy Moran PA-C Primary Care Provider: Tacho Mendoza DO Consult Narrative Narrative: Danish Lu Jr. is a 75 year old male with history of prostate cance s/p prostatectomy years ago by Dr Marie as well as XRT. Patient with cardiac event this morning and inability to place dumont by nursing staff. Patient awake and alert at this time. Review of Systems Review of Systems: All systems reviewed & are unremarkable except as noted in HPI and below PMFSH Past Medical History Medical History A-fib Aortic stenosis Arthritis Chronic kidney disease, stage 3 Chronic systolic heart failure Diabetes mellitus HLD (hyperlipidemia) Mitral valve prolapse Prostate cancer Shortness of Breath Sleep apnea Surgical History Surgical History Hx of appendectomy Hx of cholecystectomy Hx of prostatectomy Hx of vasectomy Family History Family History Father Lung cancer Diabetes mellitus Mother Cancer Father Family history of diabetes mellitus in first degree relative Family history of malignant melanoma Patient's father is Grandparent Diabetes mellitus Mother Patient's mother is Social History Social History Social History: Patient lives with his . He is a full code. Occasional beer consumption. No smoking. Smoking status: Never smoker Second hand tobacco smoke exposure: No Alcohol intake: current Drinks per week: 1 Substance use: never Gender identity (if verbalized by the patient): Male Spiritual care concerns: No Agree to blood products: Yes Meds Home Medications and Allergies Home Medications Medication Instructions Recorded Confirmed Type aspirin 81 mg tablet,delayed 81 mg PO DAILY 07/26/19 02/15/21 History release multivitamin 1 tablet PO DAILY 07/26/19 02/15/21 History niacin 500 mg capsule,extended 500 mg PO QPM 07/28/19 02/15/21 History release Calcium 500 500 mg PO DAILY 08/25/19 02/15/21 History Calcium 600-D3 Plus (mag-zinc) 1 tablet PO BID 08/25/19 02/15/21 History dmfkany-aomtlhgmv-jokf 333 mg-133 333 tablet PO DAILY 09/26/19 02/15/21 History mg-5 mg tablet furosemide 20 mg tablet 20 mg PO QAM 09/26/19 02/15/21 History pantoprazole 40 mg tablet,delayed See Rx Instructions .ROUTE 10/07/20 02/15/21 Rx release .COMPLEX #90 tablet blood sugar diagnostic See Rx Instructions .ROUTE 10/17/20 02/15/21 Rx .COMPLEX #200 each Slow Fe 142 mg (45 mg iron) See Rx Instructions .ROUTE 12/23/20 02/15/21 Rx tablet,extended release .COMPLEX #180 tablet NS atorvastatin 40 mg tablet 40 mg PO DAILY #90 tablet 12/23/20 02/15/21 Rx metformin 500 mg tablet See Rx Instructions .ROUTE 01/20/21 02/15/21 Rx .COMPLEX #180 tablet Allergies Allergy/AdvReac Type Severity Reaction Status Date / Time sotalol Allergy Other Verified 02/18/21 11:54 lisinopril AdvReac Mild Cough Verified 02/15/21 07:35 Vital Signs Vital Signs - 24 hr 02/17/21 14:10 02/17/21 14:13 02/17/21 14:15 Temperature Pulse Rate 122 H 126 H 118 H Respiratory Rate 26 H 25 H 16 Blood Pressure 116/95 H 116/76 Pulse Oximetry 100 98 94 02/17/21 14:17 02/17/21 14:20 02/17/21 14:25 Temperature Pulse Rate 72 72 79 Respiratory Rate 24 H 24
--- NOTE | 2021-02-18 13:17 | P.OP_ITS ---
Procedure Note - Detailed Date of Procedure 02/18/21 Pre-op Diagnosis afib/rvr/chf Urethral stricture, Post-op Diagnosis same Procedure Performed flexible cystoscopy, complicated dumont placement. Surgeon Jb Rosales MD Anesthesia local Description of Procedure Patient is prepped and draped usual sterile fashion. 2% viscous lidocaine inserted into urethral. [address] Has some dumont trauma from prior placement attempt. Has a bladder neck contracture which I was able to manipulate the scope past. Stiff wire placed and 16 fr big sandy tip dumont passed over wire. 10cc placed in balloon. 150cc drained at this time. Urine Output 150 Drains Yes Packing No Pathology none sent Complications No immediate complications Condition stable
[2021-02-18 13:18] LABS: Anion Gap 12 mmol/L (8-16); Blood Urea Nitrogen 42 mg/dL (9-20); Carbon Dioxide 22 mmol/L (22-30); Chloride 99 mmol/L (98-107); Estimated CRCL calculation 40 ml/min; Estimated Glomerular Filt Rate 37; Glucose 275 mg/dL (65-110); Potassium 4.6 mmol/L (3.4-5.0); Sodium 133 mmol/L (137-145)
[2021-02-18 13:19] LABS: Lactic Acid 2.1 mmol/L (0.7-2.1)
[2021-02-18] MEDS: LIDOCAINE HCL 2% GEL UROJET 10 ML PKG MUCOUS MEM (13:34)
--- NOTE | 2021-02-18 13:47 | WPDCNINT ---
Assessment and Plan Assessment and plan (1) Cardiac arrest: Code(s): I46.9 - Cardiac arrest, cause unspecified Status: Acute Assessment and Plan: Cardiac arrest likely related to torsades de Pointes likely related to sotalol. Patient does have prolonged QTC on multiple EKGs done this morning. Patient also has polymorphic and monomorphic V-tach on the tele monitor. I reviewed all these with the mortgage underwriter. Ross was achieved within 6-8 minutes. Patient is awake, alert, follows simple commands, neurologically intact -will continue to monitor serial EKGs for QTC -will hold all AV node blockers like sotalol, beta blockers, Cardizem, amiodarone -add sotalol to his list of allergies (2) Atrial fibrillation with rapid ventricular response: Code(s): I48.91 - Unspecified atrial fibrillation Status: Acute Assessment and Plan: Patient currently in sinus rhythm, rate controlled -he did undergo BUNNY cardioversion 02/17/2021 -patient was on Eliquis, will hold and start heparin infusion (3) Polymorphic ventricular tachycardia: Code(s): I47.2 - Ventricular tachycardia Status: Acute Assessment and Plan: Probable torsades de to QT prolongation. Which was probably due to sotalol patient received last night. -continue to monitor EKGs for QTC (4) Cardiomyopathy: Code(s): I42.9 - Cardiomyopathy, unspecified Status: Acute Assessment and Plan: Patient with EF of 20-25% per bedside evaluation of the echocardiogram by mortgage underwriter -chest pain was atypical and reproducible likely related to chest compressions and defibrillation. It is worse with deep breathing and coughing. Likely musculoskeletal pain -discussed with cardiology in details no justification emergent coronary angiogram is warranted as patient is high risk of bleeding. -patient was given Lasix 80 mg IV x1 this morning, will continue to monitor urine output (5) Urethral stricture: Code(s): N35.919 - Unspecified urethral stricture, male, unspecified site Status: Acute Assessment and Plan: Appreciate urology evaluation performing aflexible cystoscopy with Thrasher placement (6) QT prolongation: Code(s): R94.31 - Abnormal electrocardiogram [ECG] [EKG] Status: Acute Assessment and Plan: As above (7) CHF (congestive heart failure): Code(s): I50.9 - Heart failure, unspecified Status: Acute Assessment and Plan: As above (8) T2DM (type 2 diabetes mellitus): Code(s): E11.9 - Type 2 diabetes mellitus without complications Status: Acute Assessment and Plan: Continue sliding scale insulin and Accu-Chek (9) Chronic kidney disease, stage 3: Code(s): N18.3 - Chronic kidney disease, stage 3 (moderate) Status: Acute Assessment and Plan: Acute on chronic kidney disease, likely due to cardiac arrest, ATN, diuretics, medications -will continue to monitor urine output, electrolytes and renal function Additional Plan Discussed with patient and his at bedside updated them with patient's condition and plan of care. Code status: Full code Critical care time spent: 55 minutes Discussed with hospitalist and Cardiology This dictation may have been done utilizing a voice recognition system. Attempts have been made to correct errors. However, there may be uncorrected grammatical, spelling, and recognition errors present. Due to a high probability of clinically significant, life threatening deterioration, the patient required my highest level of preparedness to intervene emergently and I personally spent this critical care time directly and personally managing the patient. This critical care time included obtaining a history; examining the patient; pulse oximetry; ordering and review of studies; arranging urgent treatment with development of a management plan; evaluation of patient's response to treatment; frequent reassessment; and discus
[2021-02-18 14:39] LABS: Hematocrit 37.6 % (42.0-52.0); Hemoglobin 12.6 g/dL (14.0-18.0); Mean Corpuscular HGB Conc 33.5 g/dl (32-36); Mean Corpuscular Volume 92.6 fl (80-100); Mean Platelet Volume 9.6 fl (7.4-10.4); Platelet Count Result 224 k/mm3 (150-375); Red Blood Count 4.06 M/mm3 (4.6-6.20); Red Cell Distribution Width 14.6 % (11.5-14.5); White Blood Count 12.9 K/mm3 (4.5-10.0)
[2021-02-18] MEDS: HEPARIN SOD/D5W 100 UNITS/ML 25,000 UNITS/250 ML BAG 15 UNITS IV CONT (14:42)
[2021-02-18 14:46] LABS: INR 1.3; Prothrombin Time 16.3 Seconds (11.1-14.7)
[2021-02-18 14:47] LABS: Partial Thromboplastin Time 30.4 SECONDS (22.3-36.8)
[2021-02-18 15:07] LABS: Anisocytosis 2+ (NORMAL); Band Neutrophils Percent 1 % (0-6); Lymphocytes Absolute Manual 0.51 K/mm3 (1.1-4.5); Monocytes Absolute Manual 1.29 K/mm3 (0.1-0.90); Monocytes Percent Manual 10 % (3-9); Neutrophils Absolute Manual 11.09 K/mm3 (1.3-6.7); Neutrophils Percent Manual 85 % (46-73); Platelet Estimate Adequate (Adequate); Total Cells Counted 100
[2021-02-18 15:29] LABS: Troponin I 0.181 ng/mL (0.000-0.034)
--- NOTE | 2021-02-18 15:30 | ECG_ITS ---
Measurements Intervals [place] Rate: 62 P: 53 ND: 185 QRS: 4 QRSD: 105 T: 193 QT: 489 QTc: 497 Interpretive Statements SINUS RHYTHM T WAVE ABNORMALITY IN ANTEROLAT/HIGH LAT LEADS- CONSIDER ISCHEMIA PROLONGED QT INTERVAL BASELINE WANDER- III, AVR, AVL, AVF ABNORMAL ECG Electronically Signed On 02-18-2021 17:03:23 CDT by Tommy Escalante D.O.
[2021-02-18 16:34] LABS: Glucose Point of Care 258 mg/dl (65-105)
[2021-02-18 19:16] LABS: Anion Gap 13 mmol/L (8-16); Blood Urea Nitrogen 48 mg/dL (9-20); Calcium 8.5 mg/dL (8.4-10.2); Carbon Dioxide 21 mmol/L (22-30); Chloride 96 mmol/L (98-107); Estimated CRCL calculation 35 ml/min; Estimated Glomerular Filt Rate 31; Glucose 227 mg/dL (65-110); Magnesium 2.5 mg/dL (1.6-2.3); Phosphorus 6.2 mg/dL (2.5-4.5); Sodium 130 mmol/L (137-145)
--- NOTE | 2021-02-18 19:30 | ECG_ITS ---
Measurements Intervals [place] Rate: 70 P: MA: 0 QRS: -9 QRSD: 99 T: 197 QT: 648 QTc: 700 Interpretive Statements SINUS RHYTHM VENTRICULAR PREMATURE COMPLEXES T WAVE ABNORMALITY IN ANTEROLATERAL LEADS- CONSIDER ISCHEMIA PROLONGED QT INTERVAL BASELINE WANDER- I, II, III, AVR, AVL, AVF, V3 ABNORMAL ECG Electronically Signed On 02-19-2021 5:46:22 CDT by Tommy Escalante D.O.
[2021-02-18] MEDS: MAGNESIUM SULF 1 GM/D5W 100 ML 1 GM/100 ML BAG IVPB (20:45)
--- NOTE | 2021-02-18 21:05 | PDCODEBLUE ---
Code Blue Note Code Blue Note Time Arrived at Code Blue: 21:04 <Luz Ricardo PA-C - Last Filed: 02/19/21 00:12> 21:05 <Janna Robert DO - Last Filed: 02/19/21 02:17> Initial Rhythm on Arrival: Per RN, the patient was in ventricular tachycardia/torsade de Pointe <Luz Ricardo PA-C - Last Filed: 02/19/21 00:12> Reportedly torsades <Janna Robert DO - Last Filed: 02/19/21 02:17> Airway Management: Initiated bagging pt on arrival (Patient on BiPAP when I arrived. Bagged and ultimately intubated during resuscitation.) <Luz Ricardo PA-C - Last Filed: 02/19/21 00:12> Pt intubated during resuscitation <Janna Robert DO - Last Filed: 02/19/21 02:17> Chest Compressions: In process on arrival to bedside <Luz Ricardo PA-C - Last Filed: 02/19/21 00:12> In process on arrival to bedside <Janna Robert DO - Last Filed: 02/19/21 02:17> Result of Code Blue: Pt regained consciousness (Patient regained consciousness but was obtunded) <Luz Ricardo PA-C - Last Filed: 02/19/21 00:12> Cardiac Rhythm Post Code: Sinus rhythm. <Luz Ricardo PA-C - Last Filed: 02/19/21 00:12> Sinus rhythm <Janna Robert DO - Last Filed: 02/19/21 02:17> Code Blue Summary: Paul chowdhury called overhead at 21:03. CPR was in progress on my arrival to the room. Per nursing report, the patient had apparently gone into torsades early this morning after being loaded with sotalol the night before. It had appeared to them that he once again had been in torsades de Pointe or ventricular tachycardia. He was defibrillated x1 and received 2 g of magnesium before coming to. He was confused thereafter, grunting and groaning and unable to answer questions. His face was very dusky, he was clutching his chest and indicated that he was having chest discomfort, and he was not breathing efficiently thus he was intubated for impending respiratory failure. ET tube was in adequate position on bedside x-ray. Nurses are to give updates to the psychotherapist and landscape drafter for further instructions. Sedation and vent settings per Dr. Robert, who was at bedside. Blood pressure was stable post intubation but did decline over the next couple of hours requiring central line insertion and initiation of vasopressors. <Luz Ricardo PA-C - Last Filed: 02/19/21 00:12> Please see PA note. When I arrived at bedside the patient had already received cardiac defibrillation. CPR was in progress. He had received 2 g of magnesium sulfate. Post arrest the patient was thrashing about, his color was dusky. He had labored respirations and was in distress. The patient was clutching at his chest and had poor perfusion. Patient was intubated by the CONSTANCE. ET tube position was confirmed by capnography and chest x-ray. Initial ventilator settings were provided tidal volume of 450 peep of 5 rate of 18 and 80% FiO2. ABG was obtained and was unremarkable. Post intubation the patient was hypotensive but after sedation had resolved he the patient's blood pressures rebounded to the low 100 systolic. However throughout the course of the evening the patient's blood pressures trended back down with systolic blood pressures in the 60s. Subsequently I placed a femoral line and Levophed was initiated. 40 minutes was spent in critical care activities in exclusion of procedures. Due to a high probability of clinically significant, life threatening deterioration, the patient required my highest level of preparedness to intervene emergently and I personally spent this critical care time directly and personally managing the patient. This critical care time included obtaining a history; examining the patient; pulse oximetry; ordering and review of studies; arranging urgent treatment with development of a management plan; evaluation of patient's response to treatment; frequent reassessment; and discussions with other providers. It was exclu
--- NOTE | 2021-02-18 21:15 | WPDPROCEDUR ---
Procedures Intubation Intubation Date: 02/18/21 <CHELLY Walton Last Filed: 02/18/21 21:30> Intubation Time: 21:15 <CHELLY Walton Last Filed: 02/18/21 21:30> Consent: No consent obtained, emergency procedure during code. <CHELLY Walton Last Filed: 02/18/21 21:30> A pre-procedural Time-Out was completed immediately before starting the procedure and confirmed: Patient Identification, Site, Procedure, Patient Position and the Availability of Requisite Equipment: Yes <CHELLY Walton Last Filed: 02/18/21 21:30> Sedative: etomidate <CHELLY Walton Last Filed: 02/18/21 21:30> Mg given: 30 <CHELLY Walton Last Filed: 02/18/21 21:30> Paralytic: rocuronium <CHELLY Walton Last Filed: 02/18/21 21:30> Mg given: 50 <CHELLY Walton Last Filed: 02/18/21 21:30> Laryngoscope: Lizbeth <CHELLY Walton Last Filed: 02/18/21 21:30> Assist device used: fiber optic device <CHELLY Walton Last Filed: 02/18/21 21:30> ET tube size: 8 <CHELLY Walton Last Filed: 02/18/21 21:30> Tube secured depth (cm): 24 <CHELLY Walton Last Filed: 02/18/21 21:30> Tube secured location: lips <CHELLY Walton Last Filed: 02/18/21 21:30> Tube placement confirmation: visualized tube passing through cords, equal breath sounds bilaterally, no breath sounds over epigastrium and confirmation by capnometry <CHELLY Walton Last Filed: 02/18/21 21:30> Patient tolerated procedure: well <CHELLY Walton Last Filed: 02/18/21 21:30> Intubation complications: none <Luz Ricardo PA-C - Last Filed: 02/18/21 21:30> Additional comments: Chest x-ray pending at this time. Vent management per senior professional services consultant. Dr. Thad Rutherford, attending ED physician, was aware of the procedure being performed and was readily available if needed. <Luz Ricardo PA-C - Last Filed: 02/18/21 21:30>
[2021-02-18] MEDS: MIDAZOLAM 100MG/NS 100ML(*CRX) 100 MG/100 ML BAG IV CONT (21:30)
[2021-02-18] MEDS: FENTANYL 2,500MCG/NS250ML(*CRX 2,500 MCG/250 ML BAG IV CONT (21:30)
[2021-02-18 21:53] LABS: Anion Gap 17 mmol/L (8-16); Blood Urea Nitrogen 51 mg/dL (9-20); Calcium 8.6 mg/dL (8.4-10.2); Carbon Dioxide 22 mmol/L (22-30); Chloride 94 mmol/L (98-107); Estimated CRCL calculation 33 ml/min; Estimated Glomerular Filt Rate 29; Glucose 253 mg/dL (65-110); Magnesium 2.9 mg/dL (1.6-2.3); Sodium 133 mmol/L (137-145)
[2021-02-18 22:14] LABS: Troponin I 0.183 ng/mL (0.000-0.034)
[2021-02-18] MEDS: HEPARIN SODIUM 5,000 UNITS/ML VIAL 7000 UNITS IV PUSH (22:46)
--- NOTE | 2021-02-18 23:30 | ECG_ITS ---
Measurements Intervals [place] Rate: 67 P: 72 CO: 164 QRS: 4 QRSD: 102 T: 188 QT: 475 QTc: 503 Interpretive Statements SINUS RHYTHM BORDERLINE R WAVE PROGRESSION, ANTERIOR LEADS T WAVE ABNORMALITY IN ANTEROLAT/HIGH LAT LEADS- CONSIDER ISCHEMIA PROLONGED QT INTERVAL ABNORMAL ECG Electronically Signed On 02-18-2021 18:51:47 CDT by Tommy Escalante D.O.
[2021-02-18] MEDS: NOREPINEPHRINE 8 MG/D5W 250 ML 8 MG/250 ML BAG 18.75 MG IV CONT (23:45)
[2021-02-18 23:48] LABS: Alveolar/Arterial O2 Gradient 435.2 mmHg; Base Excess ABG -0.4 mEq/l (+/-2.0); Carboxyhemoglobin 0.3 % THb (0-2.0); Device VENTILATOR; Fractional Inspired Oxygen 80 %; HCO3 ABG 24.7 mEq/l (22.0-26.0); Methemoglobin ABG 0.3 %THb (0-1.5); Modified Allen's Test Pass; Oxygen Content ABG 17.7 %vol (16.0-22.0); Oxygen Saturation ABG 96.9 % (95.0-100.0); Oxyhemoglobin 94.9 % THb (90.0-100.0); PCO2 ABG 41.9 mmHg (35.0-45.0); PO2 ABG 91.2 mmHg (80.0-100.0); PO2 FiO2 Ratio Arterial Blood 1.14 %; Reduced Hemoglobin 4.5 %THb (0-5.0); Site Drawn LEFT RADIAL; Total Hemoglobin 13.2 g/dL (12.0-18.0); pH ABG 7.388 (7.350-7.450)
[2021-02-18 23:49] LABS: Arterial Blood Gas PEEP 5 cmH2O; Arterial Blood Gas Tidal Volume 450 ml; Arterial Blood Gas Vent Mode CMV; Arterial Blood Gas Ventilator rate 18 /MIN
[2021-02-19] VITALS (11 sets, daily range): BP systolic 64–102; BP diastolic 52–83; PULSE 58–87; RESP 15–19; TEMP 36.2–37.2; O2SAT 80–99
--- NOTE | 2021-02-19 00:09 | WPDPROCEDUR ---
Procedures Central Line Placement Right Femoral: Central Line Date: 02/18/21 Central Line Time: 23:45 Discussed w/ the patient/family/POA,the placement of a central venous catheter, including its clinical necessity/indication & associated potential risks, benifits and alternatives.: Yes The patient/family/POA understand(s) and acknowledge(s) the need to proceed with central venous catheter insertion as an important element of the patient's clinical management.: Yes Time Out Performed: Yes Patient Position: trendelenburg Patient placed on monitor/pulse ox: Yes Provider Prep: mask, sterile gown, sterile gloves, Max. sterile barrier precautions, cap and hand hygiene with conventional soap/water or alcohol based hand rub Central line prep: 2% Chlorhexidine scrub Sterile US Technique with sterile gel/sterile probe covers: Yes Central line lumen inserted: triple [place]az[place]: 7 Length (cm): 16 Depth of Insertion (cm): 14 Post Procedure: sutured in place, good blood return, all ports aspirated, flushed, capped, transparent dressing, hemostatic product, antimicrobial product, securement product and aseptic technique maintained throughout procedure Patient tolerated procedure: well and no complications
[2021-02-19 03:00] LABS: Lactic Acid Reflex 1.7 mmol/L (0.7-2.1)
[2021-02-19 03:11] LABS: Anion Gap 10 mmol/L (8-16); Blood Urea Nitrogen 55 mg/dL (9-20); Calcium 8.7 mg/dL (8.4-10.2); Carbon Dioxide 26 mmol/L (22-30); Chloride 98 mmol/L (98-107); Estimated CRCL calculation 28 ml/min; Estimated Glomerular Filt Rate 24; Glucose 233 mg/dL (65-110); Sodium 134 mmol/L (137-145)
--- NOTE | 2021-02-19 03:30 | ECG_ITS ---
Measurements Intervals [place] Rate: 53 P: 68 MN: 171 QRS: -13 QRSD: 106 T: 194 QT: 522 QTc: 492 Interpretive Statements SINUS BRADYCARDIA VENTRICULAR PREMATURE COMPLEXES T WAVE ABNORMALITY IN ANTEROLAT/HIGH LAT LEADS- CONSIDER ISCHEMIA PROLONGED QT INTERVAL BASELINE WANDER- I, II, III, AVR, AVL, AVF ABNORMAL ECG Electronically Signed On 02-19-2021 5:52:18 CDT by Tommy Escalante D.O.
[2021-02-19 03:57] LABS: Magnesium 2.9 mg/dL (1.6-2.3); Phosphorus 7.4 mg/dL (2.5-4.5)
[2021-02-19 05:06] LABS: Basophils Percent Auto 0.1 % (0.2-1.2); Eosinophils Percent Auto 0.1 % (0-4.4); Hematocrit 38.1 % (42.0-52.0); Hemoglobin 12.7 g/dL (14.0-18.0); Immature Granulocyte Absolute 0.12 K/mm3 (0.00-0.031); Immature Granulocyte Percent A 0.8 % (0-0.5); Lymphocytes Absolute Auto 1.63 K/mm3 (0.9-3.2); Lymphocytes Percent Auto 10.7 % (18.3-44.2); Mean Corpuscular HGB Conc 33.3 g/dl (32-36); Mean Corpuscular Volume 92.9 fl (80-100); Mean Platelet Volume 9.9 fl (7.4-10.4); Monocytes Absolute Auto 1.3 K/mm3 (0.1-0.6); Monocytes Percent Auto 8.8 % (2.6-8.5); Neutrophils Absolute Auto 12.1 K/mm3 (1.3-6.7); Neutrophils Percent Auto 79.5 % (45.5-73.1); Platelet Count Result 268 k/mm3 (150-375); Red Cell Distribution Width 14.6 % (11.5-14.5); White Blood Count 15.2 K/mm3 (4.5-10.0)
[2021-02-19 05:17] LABS: Alanine Aminotransferase 129 U/L (4-50); Albumin Level 3.7 g/dL (3.5-5.1); Alkaline Phosphatase 113 U/L (38-126); Anion Gap 12 mmol/L (8-16); Aspartate Amino Transferase 88 U/L (17-59); Bilirubin,Total 2.3 mg/dL (0.2-1.3); Blood Urea Nitrogen 54 mg/dL (9-20); Calcium 8.7 mg/dL (8.4-10.2); Carbon Dioxide 23 mmol/L (22-30); Chloride 99 mmol/L (98-107); Estimated CRCL calculation 29 ml/min; Estimated Glomerular Filt Rate 25; Glucose 211 mg/dL (65-110); Magnesium 2.8 mg/dL (1.6-2.3); Phosphorus 7.2 mg/dL (2.5-4.5); Potassium 3.9 mmol/L (3.4-5.0); Sodium 134 mmol/L (137-145)
--- NOTE | 2021-02-19 05:38 | P.CODEBLUE_ITS ---
Code Blue Note Code Blue Note Time Arrived at Code Blue: 0430 Initial Rhythm on Arrival: VFib Airway Management: Pt intubated during resuscitation (Intubated during prior resuscitation) Chest Compressions: Initiated upon arrival Cardiac Rhythm Post Code: Normal sinus rhythm Code Blue Summary: The patient already had defibrillator pads in place. Crash cart was brought into the room. The patient received compressions for approximately 30 seconds prior to defibrillation. After defibrillation the patient is still than not have a pulse and took about a minute to have return of circulation. Subsequently compressions were continued post defibrillation per ACLS guidelines. The patient did receive 1 dose of epinephrine. The patient then went into VFib arrest 2 more times once at 5:32 a.m. and once at 5:37 a.m. at which time the patient received defibrillation. After the defibrillation at 5:32 a.m. patient did not have return of pulse immediately and did receive 1 additional 1 minute to 2 minutes of CPR before return of spontaneous circulation. The patient then began having difficulty with maintaining oxygen saturations after the code at 4:30 a.m.. A repeat chest x-ray was obtained which demonstrating worsening pulmonary edema/infiltrates. An order was given for 40 mg of Lasix IV push. Patient's PEEP on ventilator was increased to 10 as his oxygen saturations were around 89%. Both the inter fold roll cutter and gardening manager were updated throughout the course of the night and aircraft body repairer hours regarding the patient's condition. 55 minute spent in critical care activities. Due to a high probability of clinically significant, life threatening deterioration, the patient required my highest level of preparedness to intervene emergently and I personally spent this critical care time directly and personally managing the patient. This critical care time included obtaining a history; examining the patient; pulse oximetry; ordering and review of studies; arranging urgent treatment with development of a management plan; evaluation of patient's response to treatment; frequent reassessment; and discussions with other providers. It was exclusive of separately billable procedures and treating other patients and teaching time. Please see Assessment and Plan section and the rest of the note for further information on patient assessment and treatment.
[2021-02-19 06:02] LABS: Alveolar/Arterial O2 Gradient 608.7 mmHg; Base Excess ABG -1.3 mEq/l (+/-2.0); Carboxyhemoglobin 0.1 % THb (0-2.0); Fractional Inspired Oxygen 100 %; HCO3 ABG 24.4 mEq/l (22.0-26.0); Methemoglobin ABG 0.2 %THb (0-1.5); Oxygen Content ABG 17.9 %vol (16.0-22.0); Oxygen Saturation ABG 90.1 % (95.0-100.0); Oxyhemoglobin 87.2 % THb (90.0-100.0); PCO2 ABG 44.1 mmHg (35.0-45.0); PO2 ABG 60.2 mmHg (80.0-100.0); Reduced Hemoglobin 12.5 %THb (0-5.0); Total Hemoglobin 14.6 g/dL (12.0-18.0)
[2021-02-19 06:03] LABS: Device VENTILATOR; Modified Allen's Test Pass; Site Drawn LEFT BRACHIAL
[2021-02-19 06:04] LABS: Arterial Blood Gas PEEP 10 cmH2O; Arterial Blood Gas Tidal Volume 450 ml; Arterial Blood Gas Vent Mode CMV; Arterial Blood Gas Ventilator rate 18 /MIN
--- NOTE | 2021-02-19 06:35 | PC.NURSE ---
asked for comfort care with dr hardwick
--- NOTE | 2021-02-19 07:18 | PM.DDS ---
Discharge Sum: Prov Provider Primary care physician: Tacho Mendoza DO Admitting provider: Reinaldo Herrera DO Consults: 02/15/21 10:47 Consult to Physician Routine Comment: notified by eMaicold[facility]icol Consulting Provider: Brennan Cunningham applications chemist/MD group to consult: Marisa Reason for consultation: afib rvr, chf Has provider been notified: Yes 02/16/21 Care Coordination Consult Routine Comment: plz castle eliquis 5mg BID. thanks! Reason for Consult:: Financial 02/18/21 Consult to Physician Routine Comment: Consulting Provider: Jb Rosales Reason for consultation: difficult dumont placement Has provider been notified: No 02/18/21 07:40 Consult to Physician Routine Comment: Consulting Provider: Nathaniel Rashid Reason for consultation: vfib/cardiac arrest Has provider been notified: Yes Pronouncing clinician: Yohana Frederick Discharge Sum: Diag PCOD Ventricular Fibrillation Contributing Factors (1) Cardiac arrest: (2) Atrial fibrillation with rapid ventricular response: (3) Polymorphic ventricular tachycardia: (4) Cardiomyopathy: (5) Urethral stricture: (6) QT prolongation: (7) CHF (congestive heart failure): (8) T2DM (type 2 diabetes mellitus): (9) Chronic kidney disease, stage 3: Discharge Sum: Summary Date and Time Date of admission: 02/16/21 12:54 Date of : 02/19/21 Time of : 07:02 Summary Details: Patient presents with dyspnea on exertion and was found to be in AFib RVR on arrival to the ER. Pt was placed on IV Cardizem through 02/17; Lopressor added. He was cardioverted on 02/17 to normal sinus rhythm. Post-cardioversion, EKG showing NSR, PVCs and T wave changes in the anterolateral leads. Troponins elevated but flat, no ACS suspected. Suspect nonischemic myocardial injury from the AFib/RVR and CHF. TSH was ormal. CHADS2 Vasc of at least 3. He has history of severe anemia with Xarelto but they could not find a source. He was started on Lovenox and transitioned to Eliquis. Sotalol was added and one dose was given the evening of the cardioversion. Patient developed frequent ectopy that evening and ultimately went into Torsades requiring CPR. He was moved to ICU. EKG showing inverted T waves anterolateral leads. Serial EKG showing QTC up to 700. Mag was replaced. Echo showing EF 20-25% with Grade II diastolic dysfunction and moderate to severe aortic stenosis (JULES 0.88cm2). In the overnight hours of 02/18-, patient developed VFib arrest x4 requiring CPR and shock. In the morning hours, patiburakn again had an episode of VFib. CPR resumed. Spanish Medical Interpreter discussed with who was at bedside and she decided not to have CPR continued. CPR stopped and patient . Additional Data Confirmation of as documented by pronouncing clinician: no pulse Family: at bedside Attending/PCP notified?: Yes Attending physician: Sandy Moran PA-C Was code activated?: Yes Hospice patient?: No
--- NOTE | 2021-02-19 09:58 | WPDINTPN ---
Progress Note: A&P Assessment and Plan (1) Cardiac arrest: Code(s): I46.9 - Cardiac arrest, cause unspecified Status: Acute Assessment and Plan: Cardiac arrest likely related to torsades de Pointes likely related to sotalol. Patient does have prolonged QTC on multiple EKGs done this morning. Patient also has polymorphic and monomorphic V-tach on the tele monitor. I reviewed all these with the sys dir. Ross was achieved within 6-8 minutes. Patient is awake, alert, follows simple commands, neurologically intact -02/19/2021: Overnight patient has had cardiac arrest x4 requiring CPR and defibrillation for VFib arrest, prolonged QTC requiring magnesium. Cardiology was be notified. -I walked in the ICU and code was called, CPR was in progress. I discussed with patient's at bedside the room who requested to stop the CPR allow the patient to go in peace and dignity (2) Atrial fibrillation with rapid ventricular response: Code(s): I48.91 - Unspecified atrial fibrillation Status: Acute Assessment and Plan: Patient currently in sinus rhythm, rate controlled -he did undergo BUNNY cardioversion 02/17/2021 -Eliquis was held (3) Polymorphic ventricular tachycardia: Code(s): I47.2 - Ventricular tachycardia Status: Acute Assessment and Plan: Probable torsades de to QT prolongation. Which was probably due to sotalol patient received last night. -continue to monitor EKGs for QTC (4) Cardiomyopathy: Code(s): I42.9 - Cardiomyopathy, unspecified Status: Acute Assessment and Plan: Patient with EF of 20-25% per bedside evaluation of the echocardiogram by sys dir -chest pain was atypical and reproducible likely related to chest compressions and defibrillation. It is worse with deep breathing and coughing. Likely musculoskeletal pain -discussed with cardiology in details no justification emergent coronary angiogram is warranted as patient is high risk of bleeding. -patient was given Lasix 80 mg IV x1 on 02/18/2021, will continue to monitor urine output (5) Urethral stricture: Code(s): N35.919 - Unspecified urethral stricture, male, unspecified site Status: Acute Assessment and Plan: Appreciate urology evaluation performing aflexible cystoscopy with Thrasher placement (6) QT prolongation: Code(s): R94.31 - Abnormal electrocardiogram [ECG] [EKG] Status: Acute Assessment and Plan: As above (7) CHF (congestive heart failure): Code(s): I50.9 - Heart failure, unspecified Status: Acute Assessment and Plan: As above (8) T2DM (type 2 diabetes mellitus): Code(s): E11.9 - Type 2 diabetes mellitus without complications Status: Acute Assessment and Plan: Continue sliding scale insulin and Accu-Chek (9) Chronic kidney disease, stage 3: Code(s): N18.3 - Chronic kidney disease, stage 3 (moderate) Status: Acute Assessment and Plan: Acute on chronic kidney disease, likely due to cardiac arrest, ATN, diuretics, medications -will continue to monitor urine output, electrolytes and renal function Additional Plan Patient at 7:02 a.m. on 02/19/2021 patient. was at bedside along with pastoral care Code status: DNR comfort measures Critical care time spent: 33 minutes Discussed with hospitalist and Cardiology This dictation may have been done utilizing a voice recognition system. Attempts have been made to correct errors. However, there may be uncorrected grammatical, spelling, and recognition errors present. Due to a high probability of clinically significant, life threatening deterioration, the patient required my highest level of preparedness to intervene emergently and I personally spent this critical care time directly and personally managing the patient. This critical care time included obtaining a history; examining the patient; pulse oximetry; ordering an
--- NOTE | 2021-02-19 10:06 | PDCODEBLUE ---
Code Blue Note Code Blue Note Time Arrived at Code Blue: 0636 Initial Rhythm on Arrival: V fib arrest Airway Management: Initiated bagging pt on arrival Chest Compressions: Initiated upon arrival Result of Code Blue: Pt Cardiac Rhythm Post Code: Sinus bradycardia Code Blue Summary: One minute into the code, I discussed with as the patient has had VFib arrest x4 overnight, the requested to stop CPR and make him comfort measures.
== END 2021-02-19 07:03 | disposition expired | DRG 308 ==
LOC: ANHED 10:50 → ANHIMU 14:20 → ANHICU 02-19 03:01 → ANHIMU 02-21 14:38
PROVIDERS: Internal Medicine; Internal Medicine Cardiovascular Disease; Nurse Practitioner; Physician Assistant; Specialist; Admitting Provider Student in an Organized Health Care Education/Training Program; Emergency Provider Emergency Medicine; PCP Internal Medicine; Visit Provider Internal Medicine
PROC: 5A2204Z Restoration of Cardiac Rhythm, Single (ICD-10-PCS; CPT 93312; principal; 2021-02-17 13:30)
PROC: 5A2204Z Restoration of Cardiac Rhythm, Single (ICD-10-PCS; 2021-02-17 13:30)
DX: I48.20 Chronic atrial fibrillation, unspecified (principal); N17.0 Acute kidney failure with tubular necrosis; I50.23 Acute on chronic systolic (congestive) heart failure; I49.01 Ventricular fibrillation; I47.2 Ventricular tachycardia; I46.9 Cardiac arrest, cause unspecified; I45.81 Long QT syndrome; I51.89 Other ill-defined heart diseases; I42.9 Cardiomyopathy, unspecified; I34.1 Nonrheumatic mitral (valve) prolapse; N35.919 Unspecified urethral stricture, male, unspecified site; R31.9 Hematuria, unspecified; T50.1X5A Adverse effect of loop [high-ceiling] diuretics, initial encounter; T44.7X5A Adverse effect of beta-adrenoreceptor antagonists, initial encounter; E11.22 Type 2 diabetes mellitus with diabetic chronic kidney disease; N18.30 Chronic kidney disease, stage 3 unspecified; M19.90 Unspecified osteoarthritis, unspecified site; I35.0 Nonrheumatic aortic (valve) stenosis; K21.9 Gastro-esophageal reflux disease without esophagitis; E78.5 Hyperlipidemia, unspecified; G47.33 Obstructive sleep apnea (adult) (pediatric); Z90.49 Acquired absence of other specified parts of digestive tract; Z85.46 Personal history of malignant neoplasm of prostate
CPT/HCPCS: 31500; 36415; 36600; 71045; 80048; 80053; 80076; 82140; 82375; 82805; 82948; 83050; 83605; 83735; 83880; 84100; 84443; 84484; 85014; 85018; 85025; 85610; 85730; 92950; 92960; 93005; 93312; 93320; 93325; 94002; 94003; 94640; 94660; 96361; 96365; 96366; 96372; 96375; 96376; 99285; A9270; C1751; C1769; C8929; C9113; G0378; J0131; J0171; J1644; J1650; J1815; J1940; J2060; J2250; J2270; J2704; J3010; J3475; J7030; J7040; J7060; Q9957